=== PATIENT | male | born 1950 | race Caucasian/White ===

== ENCOUNTER 2019-06-18 07:30 | Day surgery (SDC) | payer OTHER, SELFPAY ==
[2019-06-18] VITALS (14 sets, daily range): BP systolic 109–138; BP diastolic 70–89; PULSE 60–69; RESP 15–18; TEMP 36.7; O2SAT 91–98; BMI 26.1
--- NOTE | 2019-06-18 07:40 | XACV_ITS ---
Ht: 178 cm Wt: 83 kg BSA: 2.03 m2 Gender: Male : 1950 Any Known Allergies: Other Exam Priority: Routine Procedure(s): Procedure Description: Diagnostic procedure Procedure Description: Left Heart Catheterization Procedure Description: Left ventriculography Procedure Description: Coronary Angiography Diagnostic Cath Status: Elective Diagnostic Findings LM has 0% stenosis. LAD has 0% stenosis. CX has 0% stenosis. pRCA: Moderate 50% stenosis, KENDELL: 3 flow. Coronary angiography shows right dominance. Conclusions There is mild coronary artery disease with one vessel disease. Normal left ventricular systolic function. Ejection fraction of 60%. Jeremy Randle is a 69 year old male past medical history significant for hypertension hyperlipidemia COPD history of tobacco abuse has been seeing me in my clinic for the past year. Initially patient saw me with abnormal stress test worsening of shortness of breath and occasional chest pressure. In the month of August 2018 and had stress test which showed abnormal transient ischemic dilatation and old inferior wall myocardial infarction on perfusion scan. Since echocardiogram showed normal ejection fraction we thought that we will manage him medically. We optimize his medicine and control his risk factors however patient kept on deteriorating now to the extent that whenever he walk every time he become short of breath easily and experience chest pressure. It is the reason we discussed regarding further exploration with coronary angiogram for risk stratification and further guidance of the therapy. Today patient is here for this purpose. He has been explained all risk benefit and alternative for the procedure. Recommendations Continue current medical management and risk factor modification. Diagnostic RX Recommendation: medical therapy and/or counseling Ventriculography Ejection Fraction: 60.0 % Left Ventriculography Findings: Normal left ventricular size and systolic function. Pressures Phase:Rest AO : 81 mmHg / 63 mmHg ( 70 mmHg ) @ 4:07:00 AM 100 mmHg / 58 mmHg ( 75 mmHg ) @ 4:22:00 AM 98 mmHg / 57 mmHg ( 72 mmHg ) @ 4:22:00 AM LV : 106 mmHg / 11 mmHg / @ 4:21:00 AM 97 mmHg / -6 mmHg / @ 4:22:00 AM 105 mmHg / -2 mmHg / @ 4:22:00 AM Valves Phase:DefaultPhase AV : 0.0 mmHg @ 9:34:07 AM 0.0 mmHg @ 9:34:07 AM AV Mean Gradient: 0.0 mmHg @ 9:34:07 AM 0.0 mmHg @ 9:34:07 AM Clinical Evaluation EBL: 5mL-10mL Procedural Details Procedure Consent Obtained. Pre-Procedure Time Out. Identified patient by full name and date of as verbalized by the patient/guarantor. Does the consent match the physician's order: Yes. Accurate & Complete Informed Consent: Yes. Inpatient/Outpatient History & Physical on Chart: Yes. If H&P is completed, is and addenduem needed: No; If yes, is the addendum complete: N/A. Visualize and Verify Site with Patient/Guarantor: N/A. Relevant Radiology Images available: N/A. Pre-op teaching completed and patient verbalized understanding. The risks, benefits, and alternatives of sedation and/or procedure were discussed by physician. The patient agrees to continue. Procedure started. [facility] Clinical Fraility Score: 4: Vulnerable. Banquet Chef Indications: New Onset Angina. Chest Pain Symptom Assessment: Typical Angina Symptoms. Cardiovascular Instability: No. Correct patient, site and procedure confirmed by cath team. PERRLA. Strong, equal hand color worker bilaterally. Lungs clear x 5 lobes. IV Site on Arrival: 20 gauge in the left anticubital. IV Fluids: 0.9% NaCl at KVO. 0 mL infused prior to geotechnical laboratory technician. Pre Procedural Pulses: bilateral dorsalis pedis was 2+. Pre Procedural Pulses: bilateral posterior tibial was 2+. Pre Procedural Pulses: bilateral radial was 3+. Oxygen started at 2liters/min via nasal canula. Physician arrived. Equipment: 6F - Radial. Cardiac Cath Pack. ACIST Manifold Kit Model BT 2000. Heparinized Saline (2 units/mL), 1000 mL bag. bilateral groins was prepped with chloroprep then draped in the usual sterile fashion. right radial was prepped with chloroprep then draped in the usual sterile fashion. Baseline sample Acquired. HR: 61 BPM. Physician scrubbed in. Immediate Pre-Procedure Time Out. Correct Patient: Yes; Correct Procedure: Yes; Correct Site: Yes; Correct Patient Position: Yes; Correct Supplies: Yes; Dried Flammable Prep: Yes; Blood Products Available: N/A;. Lidocaine 1% infiltrated to the right radial. Arterial access obtained. A 5 cymraes TIG catheter in over wire. Multiple views taken of left coronary artery. Catheter redirected to the RCA. Multiple views taken of right coronary artery. Catheter removed over the exchange wire. A 5 cymraes JL4 catheter in over wire. A 5 cymraes Angled Pig catheter in over wire. EDP Sample taken: LV 106/11,23; HR: 57 BPM; SpO2: 96%. LV gram performed in MUNSON @ 10 mL/second for a total of 30 mL. EDP Sample taken: LV 97/-7,6; HR: 57 BPM; SpO2: 97%. Pullback taken: LV 105/-3,13; AO 100/58(75); Mean: 0mmHg, Peak to Peak: 0mmHg, SEP: 0sec/min; HR: 57 BPM; SpO2: 96%. Physician scrubbed out. A TR Band was successful obtaining hemostatsis at the Right Radial artery insertion site. TR band placed. Hemostasis obtained. Post Procedure: Pulses reassessed and unchanged. PERRLA. Strong, equal hand color worker bilaterally. No VTE prophylaxis required. Medication's Wasted: Lidocaine 1% = 18 mL. Medication's Wasted: Nitro = 49.8 mg. Medication's Wasted: Heparin = 1000 units. Medication's Wasted: Other = versed 1 mg. Total IV fluids: 32 mL. Contrast type used: Omnipaque 300 mgI/mL, 500 mL bottle. Complications: none. Estimated blood loss: 5mL-10mL. Post-op diagnosis: non obstructive CAD. Procedure completed. Patient transferred by wheelchair to CPRU. Vital chart was stopped. Site: Right Radial artery Sheath Size: 6 Fr Hemostasis Method: TR Band Hemostasis Success: Successful Procedure Medications Start: 8:58 AM Stop: 8:58 AM Medication: Versed Amount: 1 mg Route: I.V. Start: 8:58 AM Stop: 8:58 AM Medication: Fentanyl Amount: 50 mcg Route: I.V. Start: 9:01 AM Stop: 9:01 AM Medication: Versed Amount: 1 mg Route: I.V. Start: 9:04 AM Stop: 9:04 AM Medication: Nitrogylcerin Amount: 200 mcg Route: I.A. Start: 9:05 AM Stop: 9:05 AM Medication: Versed Amount: 1 mg Route: I.V. Start: 9:05 AM Stop: 9:05 AM Medication: Fentanyl Amount: 50 mcg Route: I.V. Start: 9:11 AM Stop: 9:11 AM Medication: Heparin Amount: 5000 units Route: I.V. I, the attending physician, have reviewed and verified all procedure medications. Yes, all medications given per verbal order History/Risk Factors Hypertension: Yes Dyslipidemia: Yes Peripheral Arterial Disease (PAD): No Myocardial Infarction (HI): No Obesity: No Renal Disease: No Tobacco Use: Current/Recent(w/in 1 year) Prior Interventions PCI: No CABG: No Valve Surgery: No Report Signatures Finalized by:Kassy Benedict MD on 06/21/2019 9:14:57 PM
[2019-06-18 08:18] LABS: Basophils # 0.1 10^3/uL (0.0-0.1); Basophils % 1.3 %; Eosinophils # 0.5 10^3/uL (0.0-0.8); Eosinophils % 8.3 %; Hematocrit 41.5 % (42.0-52.0); Hemoglobin 14.4 g/dL (11.7-16.6); Lymphocytes # 1.5 10^3/uL (0.8-4.8); Lymphocytes % 23.9 %; Mean Corpuscular HGB Conc 34.7 g/dL (30.0-36.0); Mean Corpuscular Hemoglobin 31.7 pg (28.0-34.0); Mean Corpuscular Volume 91.4 fL (80-94); Mean Platelet Volume 9.4 fL (7.4-10.4); Monocytes # 0.5 10^3/uL (0.2-0.9); Monocytes % 8.2 %; Neutrophils # 3.6 10^3/uL (1.8-7.7); Neutrophils % 56.7 %; Nucleated Red Blood Cells % 0 %; Platelet Count 289 10^3/cmm (130-400); Red Blood Count 4.54 10^6/uL (4.1-5.3); Red Cell Distribution Width 12.6 % (12.1-15.1); White Blood Count 6.4 10^3/uL (4.0-10.0)
--- NOTE | 2019-06-18 08:19 | SUR.PREOP ---
Patient prepped/ready for cath at 0820. Previous procedure still going. Patient aware that prior case running late. Verbalized understanding.
[2019-06-18] MEDS: diphenhydrAMINE 50 mg Capsule PO (08:25)
[2019-06-18 08:31] LABS: Blood Urea Nitrogen 12 mg/dL (8-23); Calcium 9.4 mg/dL (8.5-10.5); Carbon Dioxide 28 mmol/L (22-29); Chloride 98 mmol/L (98-107); Glomerular Filtration Rate 95.8 mL/min (90-130); Glucose 112 mg/dL (65-115); Osmolality Calculated 281 mOsm/kg (285-295); Sodium 137 mmol/L (136-145)
--- NOTE | 2019-06-18 08:46 | PM.HP ---
Providers/Chief Complaint Primary Care Provider: Leo Banks Chief Complaint: SOB History of Present Illness Jeremy Randle is a 69 year old male past medical history significant for hypertension hyperlipidemia COPD history of tobacco abuse has been seeing me in my clinic for the past year. Initially patient saw me with abnormal stress test worsening of shortness of breath and occasional chest pressure. In the month of August 2018 and had stress test which showed abnormal transient ischemic dilatation and old inferior wall myocardial infarction on perfusion scan. Since echocardiogram showed normal ejection fraction we thought that we will manage him medically. We optimize his medicine and control his risk factors however patient kept on deteriorating now to the extent that whenever he walk every time he become short of breath easily and experience chest pressure. It is the reason we discussed regarding further exploration with coronary angiogram for risk stratification and further guidance of the therapy. Today patient is here for this purpose. He has been explained all risk benefit and alternative for the procedure. Review of Systems Const: Denies: fever or chills Eyes: Denies: change in vision Card: Reports: chest pain Resp: Reports: shortness of breath GI: Denies: abdominal pain, nausea or vomiting : Denies: flank pain Musc: Denies: neck pain or back pain Neuro: Denies: headache or numbness in extremities Psych: Denies: anxiety Medications/Allergies Allergies Allergy/AdvReac Type Severity Reaction Status Date / Time lisinopril Allergy Unknown ADR-Cough Verified 06/18/19 08:19 PFSH Acute PFSH: Medical History (Updated 06/18/19 @ 08:54 by Kassy Benedict MD) Chest pain COPD (chronic obstructive pulmonary disease) HTN (hypertension) Hyperlipidemia Shortness of breath Family History Other Cancer Social History Smoking and tobacco status: current every day smoker Vitals/I&O/Wt Weight last 48 hrs Weight 182 lb Physical Exam Narrative: EXAM NARRATIVE: GENERAL: Patient is alert, awake and oriented x3. NECK: No jugular vein distension. HEENT: No cyanosis. No icterus. No pallor. HEART: Regular S1 and S2. No murmur, rub or gallop. LUNGS: Clear to auscultate bilaterally. ABDOMEN: Soft, nontender and nondistended. Positive bowel sounds. No guarding, rebound or tenderness. CENTRAL NERVOUS SYSTEM: Grossly nonfocal. EXTREMITIES: Lower extremities without edema bilaterally. Data : 06/18/19 08:06 06/18/19 08:06 A&P Assessment and plan (1) Shortness of breath: Patient has worsening of shortness of breath which appears to be out of proportion of his COPD. He has abnormal stress test which initially did not show ischemia but suggestive of old myocardial infarction. On the stress test he has transient ischemic dilatation which sometimes can present as physician relations representative of multivessel coronary artery disease. Despite of medication his condition has worsened therefore we decided to proceed with left heart cath. Status: Acute Code(s): R06.02 - Shortness of breath (2) Chest pain: Patient complains of worsening of chest pressure upon mild to moderate exertion from last year. He is here today for left heart catheterization for risk stratification and further exploration to look at his anatomy as multivessel coronary artery disease is a possibility Status: Acute Qualifiers: Chest pain type: unspecified Qualified Code(s): R07.9 - Chest pain, unspecified Code(s): R07.9 - Chest pain, unspecified (3) HTN (hypertension): Well-controlled. Status: Acute Qualifiers: Hypertension type: essential hypertension Qualified Code(s): I10 - Essential (primary) hypertension Code(s): I10 - Essential (primary) hypertension Attestations Medical Necessity Statement*: I am not expecting his stay to cross more than 1 midnight. He will be outpatient in bed. Coding Level of Care Code New Pt Acute Shipping Order Clerk for [facility] Patient Type New History Expanded Problem Focused Exam Expanded Problem Focused Medical Decision Making Moderate Complexity Diagnoses Shortness of breath R06.02 Chest pain R07.9 Chest pain type: unspecified HTN (hypertension) I10 Hypertension type: essential hypertension
--- NOTE | 2019-06-18 09:30 | SUR.PHASEII ---
POST CATH NOTE Patient to CPRU room 4- status post cardiac cath via the right radial approach. TR Band to right radial access site- no hematoma or s/s of hematoma formation noted. Family at bedside. Call light given. Informed to call for needs. See pre/post cath flowsheet for details.
--- NOTE | 2019-06-18 11:31 | SUR.PHASEII ---
TR Band TR Band deflated using protocol. No hematoma formation noted at this time.
== END 2019-06-18 13:05 | disposition home or self-care (01) ==
PROVIDERS: Family Provider Family Medicine; PCP Family Medicine; Visit Provider Internal Medicine Cardiovascular Disease
DX: I25.10 Atherosclerotic heart disease of native coronary artery without angina pectoris (principal); I10 Essential (primary) hypertension; E78.5 Hyperlipidemia, unspecified; J44.9 Chronic obstructive pulmonary disease, unspecified; F17.210 Nicotine dependence, cigarettes, uncomplicated
CPT/HCPCS: 12345; 36415; 80048; 85025; 93452; C1769; C1887; C1894; J1644; J2001; J2250; J3010; J3490; J7030; Q0163; Q9967

== ENCOUNTER 2019-09-18 11:00 | Outpatient (CLI) | payer OTHER, SELFPAY | END 2019-09-18 11:01 | disposition home or self-care (01) | LOC: SLEEP 09-19 09:41 | PROVIDERS: Family Provider Family Medicine; PCP Family Medicine; Visit Provider Internal Medicine Critical Care Medicine | DX: J44.9 Chronic obstructive pulmonary disease, unspecified (principal) | CPT/HCPCS: 94762 ==

== ENCOUNTER 2019-09-30 08:16 | Outpatient (CLI) | payer OTHER, SELFPAY ==
--- NOTE | 2019-09-30 08:24 | CT_ITS ---
WS: [id number] CT LUNG CANCER SCREENING DLP: 87.85 mGy.cm DIvol: 2.28 mGy CLINICAL INFORMATION SCREENING VISIT: Baseline COMPARISON: 08/17/2018 FINDINGS Diagnostic quality: Satisfactory Comments: None. Lung Nodules: LEFT upper lobe spiculated part solid nodule with a mean diameter of 15 mm there is adj acent spiculation with pleural tethering and tagging. Nodule best seen on image 101 of series 3. Not present on the CT of 08/17/2018. No additional pulmonary lesions or endobronchial lesions. Benign gran uloma superior segment LEFT lower lobe. Lungs: Hyperinflated lungs from emphysema. Heart: Normal size heart with no effusion. Scattered coronary artery calcifications. Other findings: Large hiatal hernia. Mild atherosclerosis thoracic aorta. No adenopathy. Mild gynecomastia. No adrenal mass. CT/CT lung screening [id number] IMPRESSION: LUNG-RADS: 4B-Suspicious FOLLOW UP: PET/CT recommended. Additional chest CT with contrast.
[2019-09-30 09:11] VITALS: O2SAT 90; O2SAT 94
--- NOTE | 2019-09-30 13:19 | PFTS_ITS ---
Date of Study:09/30/19 Date of Dictation: MECHANICS: Forced vital capacity (FVC) is normal. Forced expiratory volume in one second (FEV1) is reduced. FEV1/FVC is reduced. FLOW VOLUME LOOP: Reduced flow at all lung volumes with significant scooping. LUNG VOLUMES: Total lung capacity (TLC) is normal. Residual volume (RV) is normal. DIFFUSING CAPACITY FOR CARBON MONOXIDE: Moderately reduced. INTERPRETATION: The pulmonary function tests are consistent with moderate obstruction. There is no evidence of air trapping or hyperinflation. Gas exchange (DLCO) is moderately reduced. MTDD
== END 2019-09-30 08:17 | disposition home or self-care (01) ==
LOC: RT 08:18
PROVIDERS: PCP Family Medicine; Visit Provider Internal Medicine Critical Care Medicine
DX: J44.9 Chronic obstructive pulmonary disease, unspecified (principal); Z12.2 Encounter for screening for malignant neoplasm of respiratory organs; F17.210 Nicotine dependence, cigarettes, uncomplicated
CPT/HCPCS: 94010; 94726; 94729; G0297

== ENCOUNTER 2020-04-13 07:53 | Outpatient (CLI) | payer OTHER, SELFPAY ==
--- NOTE | 2020-04-13 08:00 | CT_ITS ---
WS: [id number] CT CHEST TECHNIQUE: Noncontrast CT of the chest with coronal and sagittal reformatted images. CLINICAL INFORMATION: Cavitary lesion COMPARISON: PET/CT October 19, [address] lung screening September 30, 2019 DLP: 878.[address] scans at [facility] use at least one of these dose optimization techniques: automat ed exposure control; mA and/or kV adjustment per patient size (includes targeted exams where dose is matched to clinical indication); or iterative reconstruction. FINDINGS: Again seen is the spiculated cavitary left upper lobe pulmonary nodule today measuring 1.3 x 1.3 cm u nchanged from previous. No evidence of interval progression. Recommend continued surveillance with 3 month follow-up.New noncalcified 5 mm pulmonary nodule in the left upper lobe anteriorly not definite ly present on the prior examinations. No other suspicious pulmonary parenchymal opacities.Incidental benign posterior mediastinal pericardi al cyst measuring 5.8 x 5.0 cm is unchanged. Severe centrilobular emphysematous change. Large esophageal hiatal hernia. Coronary calcification. Aortic calcification. No mediastinal or hilar the lymphadenopathy. Mild thoracic kyphosis. Mild thoracic curve. CT/CT chest wo con [id number] IMPRESSION: 1. Severe chronic emphysematous changes. 2. Stable spiculated nodule left upper lobe measuring 1.3 x 1.3 cm. This is un changed since the prior 2 examinations. Recommend 3 month follow-up diagnostic chest CT. 3. New noncalcified 5 mm pulmonary nodule in the left upper lobe anteriorly no t definitely present on the prior examinations. Recommend 3 month follow-up. 4. Stable incidental posterior mediastinal pericardial cyst 5. No mediastinal or hilar lymphadenopathy. 6. No other significant changes from previous.
== END 2020-04-13 07:54 | disposition home or self-care (01) ==
LOC: RADWPI 07:56
PROVIDERS: PCP Family Medicine; Visit Provider Internal Medicine Critical Care Medicine
DX: J98.4 Other disorders of lung (principal); R91.1 Solitary pulmonary nodule; K44.9 Diaphragmatic hernia without obstruction or gangrene
CPT/HCPCS: 71250

== ENCOUNTER 2020-10-21 08:25 | Outpatient (CLI) | payer OTHER, SELFPAY ==
--- NOTE | 2020-10-21 08:45 | CT_ITS ---
WS: [id number] CT CHEST WITHOUT INTRAVENOUS CONTRAST HISTORY: Lung nodule TECHNIQUE: Contiguous 5 mm axial imaging performed on the thorax. Coronal and sagittal reformats are submitted. All CT scans at [facility] use at least one of these dose optimization techniq ues: automated exposure control; mA and/or kV adjustment per patient size (includes targeted exams wh ere dose is matched to clinical indication); or iterative reconstruction. CONTRAST: None DLP: 729.1 mGycm COMPARISON: 04/13/[address] 10/19/2019, head and neck CT 08/17/2018 Lungs and central airway: Solid mass with mild spiculation in the LEFT upper lobe measures 11 x 14 mm . Mass has not significantly increased in size since 04/13/2020 but there is been increase in the conso lidation. Central cystic areas are no longer present. This is a solid mass. Also, mass was not defini tely present on the prior CT of 08/17/2018. Paraseptal emphysema. Additional 5 mm nodule in the central LEFT upper lobe is unchanged. Subsegmenta l atelectasis at the medial RIGHT lung base. Pleura: Normal. No pleural effusion. Heart and pericardium: Normal size heart. Pericardial cyst posterior to the LEFT atrium measures 6.3 x 5.4 cm and has been previously described. Mediastinum and rubin: No mediastinum or hilar adenopathy. Vessels: Mild atherosclerosis aorta. Normal size pulmonary artery. Chest wall and lower neck: No soft tissue masses. Upper abdomen: Moderate-sized hiatal hernia. No adrenal mass. Suprarenal atherosclerosis within the a shelby. Osseous structures: Moderate diffuse spondylitic changes in the thoracic spine. CT/CT chest wo con [id number] IMPRESSION: 1. No increase in size of the spiculated nodule LEFT upper lobe measuring 11 x 14 mm. There has been a change in the consolidation. This nodule has become mo re consolidated as compared to 04/13/2020. Also, this nodule was not definitely p resent on CT of 08/17/2018. PET/CT performed on 10/19/2019 described this as like ly benign. Recommend interval surveillance to exclude low-grade neoplasm. 2. 5 mm LEFT upper lobe nodule is stable. 3. Chronic emphysema. 4. Stable large pericardial cyst.
== END 2020-10-21 08:26 | disposition home or self-care (01) ==
PROVIDERS: PCP Family Medicine; Visit Provider Internal Medicine Critical Care Medicine
DX: R91.1 Solitary pulmonary nodule (principal); Q24.8 Other specified congenital malformations of heart; J43.9 Emphysema, unspecified
CPT/HCPCS: 71250

== ENCOUNTER 2021-03-11 08:16 | Outpatient (CLI) | payer OTHER, SELFPAY ==
--- NOTE | 2021-03-11 10:30 | CT_ITS ---
WS: [id number] CT CHEST WITHOUT INTRAVENOUS CONTRAST HISTORY: Lung nodule TECHNIQUE: Contiguous 5 mm axial imaging performed on the thorax. Coronal and sagittal reformats are submitted. All CT scans at [facility] use at least one of these dose optimization techniques: automated exposure control; mA and/or kV adjustment per patient size (includes targeted exams where dose is matched to clinical indication); or iterative reconstruction. CONTRAST: None DLP: 883.89 mGycm COMPARISON: 10/21/2020, 04/13/2020, 09/30/[address] 10/19/2019. Lungs and central airway: Pulmonary hyperexpansion. Moderate changes of emphysema. Noncalcified oval nodule measuring 11 x 14 mm is again identified in the LEFT upper lobe. No increase in size since 09/09. No additional new nodule or pneumonia. Pleura: Normal. No pleural effusion. Heart and pericardium: Heart remains normal. There is a cystic mass which conforms to its surrounding structures in the posterior mediastinum. This mass is inseparable from the esophagus and causing mil d displacement of the distal esophagus. Fluid mass measures 6.5 x 5.1 cm and is stable. Heart size is normal. Mediastinum and rubin: No mediastinum or hilar adenopathy. Vessels: Mild atherosclerotic plaque within the aorta. Normal size pulmonary artery. Chest wall and lower neck: No soft tissue masses. Upper abdomen: Mild stable perinephric stranding around the upper poles of each kidney. No adrenal ma ss. Visualized liver is normal. Osseous structures: Increase in thoracic kyphosis. Moderate spondylitic changes in the thoracic spine . CT/CT chest wo con [id number] IMPRESSION: 1. Stable ovoid nodule LEFT upper lobe measures 11 x 14 mm. No increase in siz e since 09/30/2019. Recommend continued imaging follow-up for greater than 2 yea rs. 6-12 month follow-up chest CT recommended. 2. Moderate emphysema. 3. Stable cystic mass in the posterior mediastinum may be a pericardial cyst.
== END 2021-03-11 08:17 | disposition home or self-care (01) ==
PROVIDERS: PCP Family Medicine; Visit Provider Internal Medicine Critical Care Medicine
DX: R91.1 Solitary pulmonary nodule (principal); J43.9 Emphysema, unspecified
CPT/HCPCS: 71250

== ENCOUNTER → 2021-08-16 10:54 | Outpatient (BNVA) | payer OTHER, SELFPAY | PROVIDERS: PCP Family Medicine; Visit Provider Internal Medicine Critical Care Medicine | DX: J44.9 Chronic obstructive pulmonary disease, unspecified (principal); R91.1 Solitary pulmonary nodule; F17.210 Nicotine dependence, cigarettes, uncomplicated; I10 Essential (primary) hypertension; E78.5 Hyperlipidemia, unspecified | CPT/HCPCS: 99214 ==

== ENCOUNTER 2021-09-21 11:58 | Outpatient (CLI) | payer OTHER, SELFPAY ==
--- NOTE | 2021-09-21 12:07 | CT_ITS ---
WS: [id number] CT CHEST WITHOUT INTRAVENOUS CONTRAST HISTORY: f/u lung nodule TECHNIQUE: Contiguous 5 mm axial imaging performed on the thorax. Coronal and sagittal reformats are submitted. All CT scans at [facility] use at least one of these dose optimization techniques: automated exposure control; mA and/or kV adjustment per patient size (includes targeted exams where dose is matched to clinical indication); or iterative reconstruction. CONTRAST: None DLP: 794.08 mGy.cm COMPARISON: 09/30/2019, 03/11/2021 and PET/CT 10/19/2019 Lungs and central airway: Moderate pulmonary hyperinflation from emphysema. Long-term stability, sinc e 09/30/2019 but slightly irregular ovoid nodule measuring 12 x 9 mm in the LEFT upper lobe. This was noted to be negative on a PET/CT imaging. No new or additional nodules are identified. Pleura: Normal. No pleural effusion. Heart and pericardium: Normal size heart with no pericardial effusion. Mediastinum and rubin: There is a large cystic mass conforming to the space in the posterior mediastin um abutting the posterior heart measuring 5.3 x 6.9 cm. Probably representing pericardial cyst which is unchanged over prior studies. There is mild mass effect upon the esophagus and displacement of the esophagus to the LEFT. Vessels: Mild atherosclerosis aorta with no aneurysm. Normal size pulmonary artery. Chest wall and lower neck: No soft tissue masses. Upper abdomen: Very mild perinephric stranding around the upper pole of each kidney. No adrenal mass. Small hiatal hernia. No metastatic lesions within the liver. No adrenal mass. The visualized liver a nd gallbladder pancreas are negative. Osseous structures: Mild degenerative thoracic scoliosis with degenerative disc space narrowing and o steophytosis. CT/CT chest wo con [id number] IMPRESSION: 1. Stable LEFT upper lobe nodule since 09/30/2019 measures 12 x 9 mm. 2. Chronic emphysema. 3. Long-term stability large pericardial cyst.
== END 2021-09-21 11:59 | disposition home or self-care (01) ==
LOC: RAD 12:01
PROVIDERS: PCP Family Medicine; Visit Provider Internal Medicine Critical Care Medicine
DX: R91.1 Solitary pulmonary nodule (principal); J43.9 Emphysema, unspecified
CPT/HCPCS: 71250

== ENCOUNTER → 2021-10-21 13:37 | Outpatient (BNVA) | payer OTHER, SELFPAY | PROVIDERS: PCP Family Medicine; Visit Provider Internal Medicine Cardiovascular Disease | DX: I25.10 Atherosclerotic heart disease of native coronary artery without angina pectoris (principal); J44.9 Chronic obstructive pulmonary disease, unspecified; I10 Essential (primary) hypertension; E78.49 Other hyperlipidemia; F17.210 Nicotine dependence, cigarettes, uncomplicated | CPT/HCPCS: 93005; 99214 ==

== ENCOUNTER → 2022-02-16 08:37 | Outpatient (BNVA) | payer OTHER, SELFPAY | PROVIDERS: PCP Family Medicine; Visit Provider Internal Medicine Pulmonary Disease | DX: J44.9 Chronic obstructive pulmonary disease, unspecified (principal); R91.1 Solitary pulmonary nodule; F17.210 Nicotine dependence, cigarettes, uncomplicated | CPT/HCPCS: 99214 ==

== ENCOUNTER → 2022-10-13 13:40 | Outpatient (BNVA) | payer OTHER, SELFPAY | PROVIDERS: PCP Family Medicine; Visit Provider Internal Medicine Cardiovascular Disease | DX: I25.10 Atherosclerotic heart disease of native coronary artery without angina pectoris (principal); I10 Essential (primary) hypertension; E78.49 Other hyperlipidemia; J44.9 Chronic obstructive pulmonary disease, unspecified; F17.210 Nicotine dependence, cigarettes, uncomplicated | CPT/HCPCS: 99214 ==

== ENCOUNTER → 2022-10-19 09:54 | Outpatient (BNVA) | payer OTHER, SELFPAY | PROVIDERS: PCP Family Medicine; Visit Provider Internal Medicine Pulmonary Disease | DX: J44.9 Chronic obstructive pulmonary disease, unspecified (principal); R91.1 Solitary pulmonary nodule; F17.210 Nicotine dependence, cigarettes, uncomplicated | CPT/HCPCS: 99214 ==

== ENCOUNTER 2023-04-12 10:36 | Inpatient (IN) | payer OTHER, SELFPAY ==
[2023-04-12] VITALS (9 sets, daily range): BP systolic 94–126; BP diastolic 58–86; PULSE 67–86; RESP 15–22; TEMP 36.4–37; O2SAT 92–97; BMI 25.9
--- NOTE | 2023-04-12 10:39 | ECG_ITS ---
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 Measurements Intervals [place] Rate: 65 P: 17 OR: 145 QRS: 9 QRSD: 110 T: 87 QT: 392 QTc: 408 Interpretive Statements SINUS RHYTHM MODERATE T-WAVE ABNORMALITY, CONSIDER INFERIOR ISCHEMIA [-0.1+ mV T-WAVE IN II/aVF] Compared to ECG 08/17/2018 18:03:37 Possible ischemia now present T-wave abnormality still present Electronically Signed On 04-12-2023 12:52:22 MILK TREATER by Yobani Michel M.D. [email or web address] [id number]
[2023-04-12 10:53] LABS: Basophils # 0.1 10^3/uL (0.0-0.1); Basophils % 0.6 %; Eosinophils # 0.2 10^3/uL (0.0-0.8); Eosinophils % 1.7 %; Hematocrit 42.7 % (37-53); Lymphocytes # 1.4 10^3/uL (0.8-4.8); Lymphocytes % 16.2 %; Mean Corpuscular HGB Conc 36.8 g/dL (30-55); Mean Corpuscular Volume 87.1 fl (82-101); Mean Platelet Volume 9.5 fL (7.4-10.4); Monocytes # 0.9 10^3/uL (0.2-0.9); Monocytes % 10.4 %; Neutrophils # 6.17 10^3/uL (1.8-7.7); Neutrophils % 70.5 %; Nucleated Red Blood Cells % 0 %; Platelet Count 242 10^3/cmm (157-399); Red Cell Distribution Width 12.6 % (12.1-15.1); White Blood Count 8.75 10^3/uL (3.29-11.43)
--- NOTE | 2023-04-12 11:04 | XR_ITS ---
WS: [id number] Portable AP upright chest, 04/12/2023 Clinical Data: dyspnea/cough Comparison: Portable chest, 08/17/2018. Findings: No nodules, masses or effusions are seen. The heart is normal. The pulmonary vascularity is not increased. No pneumonia or pneumothorax is seen. The aortic arch and descending thoracic aorta s how tortuosity. The diaphragms are flattened. Impression: Atherosclerosis and hyperinflation.
[2023-04-12] MEDS: sodium chloride 0.9% 1,000 ML 999 ML IV (11:13)
[2023-04-12] MEDS: ondansetron 2 mg/ML SDV 2 mL 4 MG IVP (11:15)
--- NOTE | 2023-04-12 11:29 | ED_ITS ---
HPI - SOB/Dyspnea 2 General: Chief Complaint: Shortness of Breath/Dyspnea Stated Complaint: upper epigastic pain Time Seen by Provider: 04/12/23 10:38 Source: patient History of Present Illness: HPI Narrative: 73-year-old male with a history of hyper tension and COPD presents emergency room with complaints of progressively worsening shortness of breath and chest pain relieved by nitro and has become more more intense over the last few days. Initially when it began it was brought on by activity relieved by rest now he is having chest pain while at rest. He has associated nausea and shortness of breath with it. Does radiate to the neck and left shoulder. Woke him up from sleep he took 3 nitro to relieve the pain and route this morning. Patient had previous angiogram in 2021 which showed a RCA lesion no intervention was necessary at that time. Chest pain is relieved at this time. MD elicited complaint: shortness of breath Pertinent past history: COPD and other (Coronary artery disease) Onset (ago): day(s) Timing: progressively worsening Severity: moderate Exacerbating factors: exertion Relieving factors: medication (Nitroglycerin) Associated symptoms: Reports chest pain and cough; Deny abdominal pain, chest congestion, diaphoresis, dizziness, extremity pain, fever(s), hemoptysis, lightheadedness, myalgias, nausea, orthopnea, palpitations, paresthesias, polydipsia, polyuria, rash, sense of impending doom, syncope or vomiting Review of Systems 2 Const: Denies: fever(s), chills or diaphoresis Card: Reports: chest pain; Denies: palpitations, lightheadedness, syncope or orthopnea Resp: Reports: dyspnea and wheezing; Denies: hemoptysis or chest congestion GI: Denies: abdominal pain, nausea or vomiting : Denies: dysuria, urinary frequency or urinary urgency Musc: Denies: neck pain, back pain or extremity pain Skin/Breast: Denies: rash Neuro: Denies: dizziness Endo: Denies: polyuria or polydipsia PFSH ED 2 PFSH: Medical History (Updated 04/23/23 @ 07:16 by Syed Montano DO) Osteoarthritis Shortness of breath Chest pain HTN (hypertension) COPD (chronic obstructive pulmonary disease) Hyperlipidemia Surgical History H/O thumb surgery S/P cataract surgery Family History Mother Stroke Cancer Dementia Grandfather Cancer Grandmother Cancer Father Lung disease Denies family history of Diabetes CAD (coronary artery disease) Clotting disorder Chronic kidney disease (CKD) Suicide Anesthesia complication Bleeding disorder Social History Smoking and tobacco/nicotine status: current every day tobacco/nicotine user (0.5 ppd) cigarettes Packs smoked per day: 2.5 Years cigarettes smoked: 53 [ Other cigarette details: Started at age 17 years] Quit status (tobacco/nicotine): considering quitting Alcohol intake: current Alcohol intake frequency: 0-2 Drinks per Day Alcohol type: beer Substance/Drug Use: never Lives independently: Yes Household members: spouse Marital status: service: Yes Current occupational status: retired Do you think of yourself as: Straight/Heterosexual Current gender identity: Male Physical Exam 2 Const: GENERAL APPEARANCE: cooperative and comfortable O RIENTATION/CONSCIOUSNESS: Yes awake, Yes oriented to person, Yes oriented to place and Yes oriented to time HENMT: COMMON NORMALS: normocephalic, atraumatic and hearing grossly normal bilaterally HEAD & SCALP: normocephalic and atraumatic Resp: COMMON NORMALS: normal respiratory effort, No retractions and No use of accessory muscles AUSCULTATION: wheezes Cardio: COMMON NORMALS: regular rate, regular rhythm and No murmurs present (Cardio) RATE: regular rate RHYTHM: regular rhythm GI: COMMON NORMALS: Soft to palpation and No hepatosplenomegaly present A USCULTATION: Yes normoactive bowel sounds PALPATION: Yes Soft to palpation, No Tenderness to palpation present (GI), No Guarding due to palpation present (GI) and Yes No hepatosplenomegaly present Extremity: COMMON NORMALS: normal to inspection, capillary refill normal, no clubbing, cyanosis or edema, no calf tenderness and no pedal edema Neuro: SENSORIUM/ORIENTATION: Yes oriented to person, Yes oriented to place and Yes oriented to time Skin: COMMON NORMALS: no rashes or lesions noted GENERAL SKIN EXAM: no rashes or lesions noted Course 2 Vital Signs: Vital signs: Vital Signs Temperature 98.0 F 04/14/23 08:00 Pulse Rate 82 04/14/23 15:11 Respiratory Rate 18 04/14/23 15:03 Blood Pressure 122/75 04/14/23 14:18 Pulse Oximetry 93 04/14/23 15:03 Oxygen Delivery Me thod Nasal Cannula 04/14/23 15:03 Oxygen Flow Rate 2 04/14/23 15:03 MDM - SOB/Dyspnea Medical Decision Making Progressive angina now to the point of having unstable angina onset while at rest and relieved with nitroglycerin. Patient has known coronary disease. Discussed Dr. Carter recommends admission for further evaluation. Medical Records I reviewed the patient's medical records. Lab Data I reviewed the patient's lab results. 04/14/23 03:56 04/14/23 03:56 Labs/Radiology: Laboratory Results WBC 8.75 10^3/uL (3.29-11.43) 04/12/23 10:46 RBC 4.90 10^6/uL (3.85-5.65) 04/12/23 10:46 Hgb 15.70 g/dL (11.27-16.99) 04/12/23 10:46 Hct 42.7 % (37-53) 04/12/23 10:46 MCV 87.1 fl (82-101) 04/12/23 10:46 MCH 32.0 pg (27-33) 04/12/23 10:46 MCHC 36.8 g/dL (30-55) 04/12/23 10:46 RDW 12.6 % (12.1-15.1) 04/12/23 10:46 Plt Count 242 10^3/cmm (157-399) 04/12/23 10:46 MPV 9.5 fL (7.4-10.4) 04/12/23 10:46 Neut % (Auto) 70.5 % 04/12/23 10:46 Lymph % (Auto) 16.2 % 04/12/23 10:46 [place] % (Auto) 10.4 % 04/12/23 10:46 Eos % (Auto) 1.7 % 04/12/23 10:46 Baso % (Auto) 0.6 % 04/12/23 10:46 Neut # (Auto) 6.17 10^3/uL (1.8-7.7) 04/12/23 10:46 Lymph # (Auto) 1.4 10^3/uL (0.8-4.8) 04/12/23 10:46 [place] # (Auto) 0.9 10^3/uL (0.2-0.9) 04/12/23 10:46 Eos # (Auto) 0.2 10^3/uL (0.0-0.8) 04/12/23 10:46 Baso # (Auto) 0.1 10^3/uL (0.0-0.1) 04/12/23 10:46 Nucleated RBC % (auto) 0 % 04/12/23 10:46 Nucleated RBCs # 0.0 /100WBC 04/12/23 10:46 Sodium 130 mmol/L (136-145) L 04/12/23 10:46 Potassium 3.5 mmol/L (3.5-5.1) 04/12/23 10:46 Chloride 90 mmol/L (98-107) L 04/12/23 10:46 Carbon Dioxide 24 mmol/L (22-29) 04/12/23 10:46 Anion Gap 19.5 (5-19) H 04/12/23 10:46 BUN 18 mg/dL (8-23) 04/12/23 10:46 Creatinine 1.2 mg/dL (0.7-1.2) 04/12/23 10:46 GFR Calculation Not Reportable 04/12/23 10:46 Glucose 135 mg/dL (65-115) H 04/12/23 10:46 Estimat Average Glucose 114 04/12/23 10:46 Hemoglobin A1c 5.6 % (4.0-6.0) 04/12/23 10:46 Calculated Osmolality 274 mOsm/kg (285-295) L 04/12/23 10:46 Calcium 8.9 mg/dL (8.5-10.5) 04/12/23 10:46 Total Bilirubin 0.6 mg/dL (0.15-1.2) 04/12/23 10:46 AST 19 U/L (0-40) 04/12/23 10:46 ALT 10 U/L (0-41) 04/12/23 10:46 Alkaline Phosphatase 82 U/L (40-130) 04/12/23 10:46 Troponin T Baseline 14 ng/L (0-15) 04/12/23 10:46 Troponin T 120 Minute 11.70 ng/L (0-15) 04/12/23 12:13 Delta Troponin T -2.30 ABS# (0-10) L 04/12/23 12:13 NT-Pro-B Natriuret Pep 193 pg/mL (0-125) H 04/12/23 10:46 Total Protein 6.6 g/dL (6.6-8.7) 04/12/23 10:46 Albumin 4.0 g/dL (3.5-5.2) 04/12/23 10:46 Globulin 2.6 g/dL (1.3-4.6) 04/12/23 10:46 Lipase 14 U/L (13-60) 04/12/23 10:46 TSH 1.31 uIU/mL (0.27-4.20) 04/12/23 10:46 All radiology interpretation(s) finalized by discharge Discharge Plan Discharge Patient Disposition: Admitted As Inpatient Admit Provider: Ines Kim Clinical Impression: 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
[2023-04-12 11:38] LABS: Alanine Aminotransferase 10 U/L (0-41); Alkaline Phosphatase 82 U/L (40-130); Anion Gap 19.5 (5-19); Aspartate Amino Transferase 19 U/L (0-40); Blood Urea Nitrogen 18 mg/dL (8-23); Calcium 8.9 mg/dL (8.5-10.5); Carbon Dioxide 24 mmol/L (22-29); Chloride 90 mmol/L (98-107); Globulin 2.6 g/dL (1.3-4.6); Glucose 135 mg/dL (65-115); Lipase 14 U/L (13-60); Osmolality Calculated 274 mOsm/kg (285-295); Potassium 3.5 mmol/L (3.5-5.1); Sodium 130 mmol/L (136-145); Total Bilirubin 0.6 mg/dL (0.15-1.2); Total Protein 6.6 g/dL (6.6-8.7)
[2023-04-12 11:39] LABS: Troponin(5th) Baseline 14 ng/L (0-15)
--- NOTE | 2023-04-12 12:39 | ECG_ITS ---
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 Measurements Intervals [place] Rate: 70 P: -56 VA: 155 QRS: -3 QRSD: 101 T: 91 QT: 360 QTc: 389 Interpretive Statements SINUS RHYTHM NONSPECIFIC ST & T-WAVE ABNORMALITY Compared to ECG 04/12/2023 11:00:24 Possible ischemia no longer present T-wave abnormality still present Electronically Signed On 04-12-2023 12:52:43 RADIAL DRILL OPERATOR FOR PLASTIC by Yobani Michel M.D. [id number]
--- NOTE | 2023-04-12 15:03 | P.HP_ITS ---
Providers/Chief Complaint 2 Primary Care Provider: Denise Orantes MD Chief Complaint: upper epigastic pain History of Present Illness Jeremy Randle is a 73 year old male With past medical history of hypertension, COPD, hyperlipidemia, shortness of breath presented to the hospital today with complaint of chest pain. He states that the pain has been worsening and worsening over the last couple of days. He has been using nitro. He says when he gets the chest pain he breaks into a sweat. And last night when he had the pain he became very dizzy and lightheaded along with it. He typically takes nitro for it. He says he took 3 nitros and it finally subsided. He has been watching it but did not come to the hospital however it was now unbearable and therefore he presented. He follows with Dr. Carter for cardiology and Dr. Enciso for his COPD. He says he has an appointment coming up with Dr. Carter and he was planning to tell him that the chest pain is getting worse and worse and something needs to be done about it. Patient has had an angiogram done back in 2021 and he was found to have a 50% RCA lesion KENDELL flow 3, at that time no interventional targets. He says at first the chest pain was happening upon exertion however now it starting to happen with minimal exertion as well. Simply him getting up out of bed causes the pain and him breaking into a sweat. Pain is mostly middle of the chest and sometimes epigastric.. Also has nausea and sometimes. Denies any other symptoms. Medications/Allergies Home Medications Medication Instructions Recorded Confirmed Last Taken Type chlorpheniramine maleate 4 mg 4 mg PO Q4H PRN Allergy Symptoms 05/01/19 04/12/23 06/18/19 05:30 History tablet ibuprofen 800 mg tablet 800 mg PO TID 05/01/19 04/12/23 04/11/23 History isosorbide mononitrate 30 mg 15 mg PO BID 05/01/19 04/12/23 04/11/23 History tablet,extended release 24 hr nitroglycerin 0.4 mg sublingual 0.4 mg sublingual DIRECTED PRN 05/01/19 04/12/23 04/12/23 History tablet (Nitrostat) Chest Pain omeprazole 20 mg capsule,delayed 20 mg PO QDAY 05/01/19 04/12/23 04/11/23 History release hydrochlorothiazide 25 mg tablet 25 mg PO QAM #90 tabs 11/01/19 04/12/23 04/11/23 Rx albuterol sulfate 90 mcg/actuation 2 puff inhalation Q6H PRN 01/14/20 04/12/23 Unknown Rx aerosol inhaler (ProAir HFA) shortness of breath or wheezing #18 grams guaifenesin 200 mg tablet 400 mg PO Q4H PRN Cough 07/24/20 04/12/23 Unknown History tramadol 50 mg tablet 50 mg PO TID PRN Pain 07/24/20 04/12/23 Unknown History tiotropium 2.5 mcg-olodaterol 2.5 2 puff inhalation Q24H 30 days #4 02/15/21 04/12/23 04/11/23 Rx mcg/actuation mist for inhalation grams (Stiolto Respimat) fluticasone propionate 50 2 spray intranasal QPM 02/16/22 04/12/23 04/11/23 History mcg/actuation nasal spray,suspension (Children's Flonase Allergy Relief) amlodipine 5 mg tablet 2.5 mg PO DAILY 04/12/23 04/12/23 04/11/23 History atenolol 50 mg tablet 25 mg PO BID 04/12/23 04/12/23 04/11/23 History losartan 100 mg tablet See Rx Instructions .Route .COMPLEX 04/12/23 04/12/23 04/11/23 History Allergies Allergy/AdvReac Type Severity Reaction Status Date / Time lisinopril Allergy Unknown ADR-Cough Verified 04/12/23 11:10 PFSH Acute 2 PFSH: Medical History Osteoarthritis Shortness of breath Chest pain HTN (hypertension) COPD (chronic obstructive pulmonary disease) Hyperlipidemia Surgical History H/O thumb surgery S/P cataract surgery Family History Mother Stroke Cancer Dementia Grandfather Cancer Grandmother Cancer Father Lung disease Denies family history of Diabetes CAD (coronary artery disease) Clotting disorder Chronic kidney disease (CKD) Suicide Anesthesia complication Bleeding disorder Social History Smoking and tobacco/nicotine status: current every day tobacco/nicotine user (0.5 ppd) cigarettes Packs smoked per day: 2.5 Years cigarettes smoked: 53 [ Other cigarette details: Started at age 17 years] Quit status (tobacco/nicotine): considering quitting Alcohol intake: current Alcohol intake frequency: 0-2 Drinks per Day Alcohol type: beer Substance/Drug Use: never Lives independently: Yes Household members: spouse Marital status: service: Yes Current occupational status: retired Do you think of yourself as: Straight/Heterosexual Current gender identity: Male Vitals/I&O/Wt Last Vital Signs Temp 97.6 F 04/12/23 10:40 Pulse 67 04/12/23 10:40 Resp 18 04/12/23 10:40 BP 94/58 04/12/23 10:40 Pulse Ox 93 04/12/23 10:40 O2 Del Method Room Air 04/12/23 10:40 Weight last 48 hrs Weight 84.368 kg Physical Exam 2 Narrative: General: Alert oriented x3, patient seen sitting up in bed, chest pain-free. HEENT: Normocephalic, atraumatic, EOMI, breathing comfortably on room air. Cardio: Regular rate rhythm, normal S1-S2, Respiratory: Good bilateral air entry, no wheezes no rhonchi appreciated GI: Abdomen soft, nontender, nondistended, bowel sounds + Behavior: Appropriate and cooperative Extremities: No edema noted. Data 04/12/23 10:46 04/12/23 10:46 A&P Assessment and plan (1) HTN (hypertension): Qualifiers: Hypertension type: essential hypertension Qualified Code(s): I10 - Essential (primary) hypertension (2) Chest pain: Qualifiers: Chest pain type: unspecified Qualified Code(s): R07.9 - Chest pain, unspecified (3) Atherosclerosis of coronary artery of [place] heart without angina pectoris: (4) Hyperlipidemia: Qualifiers: Hyperlipidemia type: other hyperlipidemia Qualified Code(s): E78.49 - Other hyperlipidemia (5) COPD (chronic obstructive pulmonary disease): (6) Shortness of breath: (7) Nicotine addiction: Plan #Unstable angina #Coronary artery disease 50% RCA lesion #Hypertension #COPD ? Start on ACS protocol to treat for unstable angina. Aspirin, loaded with Plavix, Plavix daily, continue atenolol. Start therapeutic Lovenox every 12 hours ? Continue Imdur, Nitropaste ? Consult cardiology. ? Check hemoglobin A1c, lipid panel, TSH ? Check BMP ? Follow troponin trend. Initial troponin done, 2016 hrs. pending at this time ? Serial EKGs -Check echo for wall motion abnormalities - Continue to monitor on telemetry. - Admit to cardiac step down - Duoneb q6h as needed DNR/DNI he states if he goes let him go. I do not want any interventions. Attestations 2 Medical Necessity Statement*: > 2midnight stay for mgmt of Unstable angina Diagnoses Essential hypertension I10 Hypertension type: essential hypertension Chest pain, unspecified type R07.9 Chest pain type: unspecified Atherosclerosis of coronary artery of [place] heart without angina pectoris I25.10 Other hyperlipidemia E78.49 Hyperlipidemia type: other hyperlipidemia COPD (chronic obstructive pulmonary disease) J44.9 Shortness of breath R06.02 Nicotine addiction F17.200
--- NOTE | 2023-04-12 15:16 | USCV_ITS ---
Jeremy Randle Age: 73 Gender: M : 1950 Exam Date: 04/12/2023 19:07 Ordering Phys: Ines Kim MD Technologist: MCKENNA Exam Location: [facility] [place] Indication: Unstable Angina, SOB, dyspnea, chronic COPD, long- term smoker, continues smoking. BP: 126 / 81 HR: 80 Rhythm: Sinus Technical Quality: Adequate MEASUREMENTS (Male / Female) Normal Values 2D ECHO LV Diastolic Diameter PLAX 4.0 cm 4.2 - 5.9 / 3.9 - 5.3 cm LV Systolic Diameter PLAX 2.5 cm IVS Diastolic Thickness 1.4 cm 0.6 - 1.0 / 0.6 - 0.9 cm IVS Systolic Thickness 1.6 cm LVPW Diastolic Thickness 1.2 cm 0.6 - 1.0 / 0.6 - 0.9 cm LVPW Systolic Thickness 1.6 cm LVOT Diameter 1.8 cm LV Ejection Fraction 2D Teich 70.0 % LV Ejection Fraction MOD 2C 63.7 % LV Ejection Fraction 2C AL 65.0 % LA Diameter 2.8 cm LA Width 2.3 cm LA Height 3.9 cm RA Width 3.0 cm RA Height 3.5 cm Aorta at Sinotubular Diameter 3.1 cm IVC Diameter 1.1 cm M-MODE Aortic Annulus Diameter 3.9 cm LA Ao Ratio MM 0.8 MV E Point Septal Separation 0.5 cm DOPPLER AV Peak Velocity 109.0 cm/s LVOT Peak Velocity 76.0 cm/s AV Area Cont Eq vti 1.9 cm squared AV Area Cont Eq pk 1.8 cm squared MV Peak Velocity 105.0 cm/s MV Area PHT 3.6 cm squared Mitral E to A Ratio 0.7 MV E' Velocity 30.0 cm/s Mitral E to MV E' Ratio 7.0 Mitral E to LV E' Lateral Ratio 6.2 Mitral E to LV E' Septal Ratio 8.0 TR Peak Velocity 249.0 cm/s TR Peak Gradient 24.8 mmHg TV Peak E Velocity 49.0 cm/s Right Atrial Pressure 5.0 mmHg Pulmonary Artery Systolic Pressu 29.8 mmHg PV Peak Velocity 121.0 cm/s RV Acceleration Time 0.1 s RV Ejection Time 0.4 s RV AcT/ET 0.2 FINDINGS Left Ventricle Normal left ventricular size and systolic function, EF 59 %. No regional wall motion abnormalities. Technically difficult study because of poor ultrasonic window Right Ventricle Normal right ventricular size and systolic function. Right Atrium The right atrium is normal in size. Left Atrium Normal left atrial size. Mitral Valve Mild mitral annular calcification. Aortic Valve Thickened aortic valve. Tricuspid Valve No gross abnormality noted Pulmonic Valve no gross abnormality noted Pericardium No pericardial effusion. Aorta Normal ascending aorta dimension. IVC Possible large left-sided pleural effusion CONCLUSIONS Normal left ventricular size and systolic function, EF 59 %. No regional wall motion abnormalities. Mild mitral annular calcification. Thickened aortic valve. There is no pericardial effusion. Possible large left-sided pleural effusion Technically difficult study because of poor ultrasonic window Dr Steffi Carter MD FACC (Electronically Signed) Final Date: 12 April 2023 23:57 S
[2023-04-12 15:49] LABS: Estmated Average Glucose 114; Hemoglobin A1C 5.6 % (4.0-6.0)
[2023-04-12 15:55] LABS: NT Pro B Type Natriuretic Pept 193 pg/mL (0-125); Thyroid Stimulating Hormone 1.31 uIU/mL (0.27-4.20)
--- NOTE | 2023-04-12 15:56 | PC.NURSE ---
DOMINIK ELMORE TOOK OVER CARE @ [id number]
--- NOTE | 2023-04-12 16:39 | ECG_ITS ---
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 Measurements Intervals [place] Rate: 73 P: -40 [place]: 149 QRS: 23 QRSD: 102 T: 78 QT: 379 QTc: 420 Interpretive Statements SINUS RHYTHM MINIMAL ST DEPRESSION [0.025+ mV ST DEPRESSION] Compared to ECG 04/12/2023 12:19:56 ST (T wave) deviation now present T-wave abnormality no longer present Electronically Signed On 04-12-2023 19:02:10 ASSOCIATE PROFESSOR OF LITERATURE by Yobani Michel M.D. [id number]
[2023-04-12] MEDS: clopidogrel 300 mg Tablet PO (17:02)
[2023-04-12] MEDS: aspirin 81 mg EC Tablet PO (17:02)
[2023-04-12] MEDS: enoxaparin 80 mg/0.8 mL Syringe SUBCUT (17:02)
[2023-04-12] MEDS: sodium chloride 0.9% 1,000 ML 75 ML IV (17:07)
--- NOTE | 2023-04-12 18:10 | P.CONIM_ITS ---
Providers/Reason For Consult 2 Consulting Physician/Specialty*: Yobani Michel MD/ Cardiology Reason for Consult*: Chest pain Requesting Physician: Dr Kim Attending Physician: Ines Kim MD Primary Care Provider: Denise Orantes MD History of Present Illness History of Present Illness Jeremy Randle is a 73 year old male with past medical history of significant COPD, nonobstructive CAD has presented to hospital with complaints of chest discomfort and shortness of breath. According to patient he has been noticing chest discomfort more often recently. Has used multiple nitros. His EKG does not show significant ST-T wave changes. Troponins are negative. Last coronary angiogram was about 2 to 3 years ago and had to moderate 50% stenosis in RCA. Review of Systems 2 Const: Denies: fever(s) or chills Card: Reports: chest pain Resp: Reports: dyspnea and wheezing GI: Denies: abdominal pain : Denies: dysuria, urinary frequency or urinary urgency Musc: Denies: neck pain or back pain Skin/Breast: Denies: rash Medications/Allergies Home Medications Medication Instructions Recorded Confirmed Last Taken Type chlorpheniramine maleate 4 mg 4 mg PO Q4H PRN Allergy Symptoms 05/01/19 04/12/23 06/18/19 05:30 History tablet ibuprofen 800 mg tablet 800 mg PO TID 05/01/19 04/12/23 04/11/23 History isosorbide mononitrate 30 mg 15 mg PO BID 05/01/19 04/12/23 04/11/23 History tablet,extended release 24 hr nitroglycerin 0.4 mg sublingual 0.4 mg sublingual DIRECTED PRN 05/01/19 04/12/23 04/12/23 History tablet (Nitrostat) Chest Pain omeprazole 20 mg capsule,delayed 20 mg PO QDAY 05/01/19 04/12/23 04/11/23 History release hydrochlorothiazide 25 mg tablet 25 mg PO QAM #90 tabs 11/01/19 04/12/23 04/11/23 Rx albuterol sulfate 90 mcg/actuation 2 puff inhalation Q6H PRN 01/14/20 04/12/23 Unknown Rx aerosol inhaler (ProAir HFA) shortness of breath or wheezing #18 grams guaifenesin 200 mg tablet 400 mg PO Q4H PRN Cough 07/24/20 04/12/23 Unknown History tramadol 50 mg tablet 50 mg PO TID PRN Pain 07/24/20 04/12/23 Unknown History tiotropium 2.5 mcg-olodaterol 2.5 2 puff inhalation Q24H 30 days #4 02/15/21 04/12/23 04/11/23 Rx mcg/actuation mist for inhalation grams (Stiolto Respimat) fluticasone propionate 50 2 spray intranasal QPM 02/16/22 04/12/23 04/11/23 History mcg/actuation nasal spray,suspension (Children's Flonase Allergy Relief) amlodipine 5 mg tablet 2.5 mg PO DAILY 04/12/23 04/12/23 04/11/23 History atenolol 50 mg tablet 25 mg PO BID 04/12/23 04/12/23 04/11/23 History losartan 100 mg tablet See Rx Instructions .Route .COMPLEX 04/12/23 04/12/23 04/11/23 History Allergies Allergy/AdvReac Type Severity Reaction Status Date / Time lisinopril Allergy Unknown ADR-Cough Verified 04/12/23 11:10 Current Medications Generic Name Dose Route Start Last Admin Trade Name Freq PRN Reason Stop Dose Admin Aspirin 81 mg 04/12/23 15:58 04/12/23 17:02 Aspirin 81 Mg Ec Tablet PO 81 mg DAILY MAYI Administration Enoxaparin Sodium 80 mg 04/12/23 16:00 04/12/23 17:02 Enoxaparin 80 Mg/0.8 Ml Syringe SUBCUT 80 mg Q12H MAYI Administration Sodium Chloride 1,000 mls @ 75 mls/hr 04/12/23 15:15 04/12/23 17:07 Sodium Chloride 0.9% IV 75 mls/hr .[id number] MAYI Administration PFSH Acute 2 PFSH: Medical History Osteoarthritis Shortness of breath Chest pain HTN (hypertension) COPD (chronic obstructive pulmonary disease) Hyperlipidemia Surgical History H/O thumb surgery S/P cataract surgery Family History Mother Stroke Cancer Dementia Grandfather Cancer Grandmother Cancer Father Lung disease Denies family history of Diabetes CAD (coronary artery disease) Clotting disorder Chronic kidney disease (CKD) Suicide Anesthesia complication Bleeding disorder Social History Smoking and tobacco/nicotine status: current every day tobacco/nicotine user (0.5 ppd) cigarettes Packs smoked per day: 2.5 Years cigarettes smoked: 53 [ Other cigarette details: Started at age 17 years] Quit status (tobacco/nicotine): considering quitting Alcohol intake: current Alcohol intake frequency: 0-2 Drinks per Day Alcohol type: beer Substance/Drug Use: never Lives independently: Yes Household members: spouse Marital status: service: Yes Current occupational status: retired Do you think of yourself as: Straight/Heterosexual Current gender identity: Male Vitals/I&O/Wt Last Vital Signs Temp 98.0 F 04/12/23 16:00 Pulse 82 04/12/23 16:00 Resp 18 04/12/23 16:00 BP 126/81 04/12/23 16:00 Pulse Ox 92 04/12/23 16:00 O2 Del Method Room Air 04/12/23 16:00 04/12/23 04/12/23 04/12/23 06:59 14:59 22:59 Intake Total 1000 / 1000 Balance 1000 / 1000 Weight last 48 hrs Weight 186 lb Weight 186 lb Physical Exam 2 Narrative: GENERAL: Patient is alert, awake and oriented x3. [] NECK: No jugular vein distension. [] HEENT: No cyanosis. No icterus. No pallor. [] HEART: Regular S1 and S2. No murmur, rub or gallop. [] LUNGS: Has bilateral wheezing CENTRAL NERVOUS SYSTEM: Grossly nonfocal. [] EXTREMITIES: Lower extremities with 1+ edema bilaterally. Data 04/13/23 04:35 04/13/23 04:35 A&P Assessment and plan (1) Chest pain: Qualifiers: Chest pain type: unspecified Qualified Code(s): R07.9 - Chest pain, unspecified (2) HTN (hypertension): Qualifiers: Hypertension type: essential hypertension Qualified Code(s): I10 - Essential (primary) hypertension (3) Hyperlipidemia: Qualifiers: Hyperlipidemia type: other hyperlipidemia Qualified Code(s): E78.49 - Other hyperlipidemia (4) Atherosclerosis of coronary artery of [place] heart without angina pectoris: Plan Patient's chest pain symptoms have both typical and atypical features however it is improved with nitros. He has been taking several nitros every day. He has active wheezing. He is not able to do exercise stress test and with active wheezing, will not be a candidate for a Lexiscan. Keep NPO. In the morning we will decide on further management. He may need coronary angiography. Echo shows normal LV systolic function. Thank you for involving us with care of this patient. We will continue to follow. Please call with questions. Consult Attestations 2 Medical Necessity Statement: Care expected to cross 2 midnights. Coding Level of Care Code Acute Code for [facility] Diagnoses Chest pain, unspecified type R07.9 Chest pain type: unspecified Essential hypertension I10 Hypertension type: essential hypertension Other hyperlipidemia E78.49 Hyperlipidemia type: other hyperlipidemia Atherosclerosis of coronary artery of [place] heart without angina pectoris I25.10
[2023-04-12] MEDS: isosorbide mononitrate ER 30 mg Tablet 15 MG PO (18:59)
[2023-04-12] MEDS: atenolol 50 mg Tablet 25 MG PO (18:59)
[2023-04-12] MEDS: losartan 50 mg Tablet PO (18:59)
[2023-04-12] MEDS: ipratropium-albuterol 3 mL Neb INHALATION (21:23)
[2023-04-13] VITALS (18 sets, daily range): BP systolic 104–144; BP diastolic 60–83; PULSE 77–91; RESP 12–27; TEMP 36.5–37; O2SAT 91–97
[2023-04-13 04:50] LABS: Basophils % 0.1 %; Eosinophils % 0.1 %; Hematocrit 41.2 % (37-53); Lymphocytes % 10.2 %; Mean Corpuscular HGB Conc 35.2 g/dL (30-55); Mean Corpuscular Hemoglobin 31.3 pg (27-33); Monocytes # 0.6 10^3/uL (0.2-0.9); Monocytes % 6.1 %; Neutrophils # 8.34 10^3/uL (1.8-7.7); Neutrophils % 83.1 %; Nucleated Red Blood Cells % 0 %; Platelet Count 224 10^3/cmm (157-399); Red Blood Count 4.63 10^6/uL (3.85-5.65); Red Cell Distribution Width 12.7 % (12.1-15.1); White Blood Count 10.03 10^3/uL (3.29-11.43)
[2023-04-13 05:20] LABS: Alanine Aminotransferase 10 U/L (0-41); Albumin Level 3.9 g/dL (3.5-5.2); Alkaline Phosphatase 73 U/L (40-130); Anion Gap 16.4 (5-19); Aspartate Amino Transferase 23 U/L (0-40); Blood Urea Nitrogen 18 mg/dL (8-23); Calcium 9.2 mg/dL (8.5-10.5); Carbon Dioxide 25 mmol/L (22-29); Chloride 94 mmol/L (98-107); Glucose 120 mg/dL (65-115); Magnesium 1.6 mg/dL (1.7-2.3); Osmolality Calculated 277 mOsm/kg (285-295); Potassium 3.4 mmol/L (3.5-5.1); Sodium 132 mmol/L (136-145); Total Bilirubin 0.5 mg/dL (0.15-1.2); Total Protein 6.9 g/dL (6.6-8.7)
[2023-04-13] MEDS: sodium chloride 0.9% 1,000 ML 75 ML IV ×2 (05:21→18:45)
[2023-04-13] MEDS: ipratropium-albuterol 3 mL Neb INHALATION ×5 (05:40→21:11)
[2023-04-13 05:58] LABS: Add Urine Microscopic? YES; Bilirubin Urine Neg (Negative); Blood Urine 2+ (Negative); Glucose Urine UA Norm (Normal); Ketones Urine Negative (Negative); Leukocyte Esterase Urine Negative (Negative); Nitrate Urine Negative (Negative); Protein Urine Neg (Negative); Urine Appearance Hazy (CLEAR); Urine Color Yellow (Yellow); Urobilinogen Urine Neg (Negative); pH Urine 5 (5-7)
[2023-04-13 05:59] LABS: Add Urine Culture? Yes; Bacteria Urine 3+ /hpf; RBC Urine 0-4 /hpf (0-2); Transitional Epi Cells Urine 0-4 /hpf
[2023-04-13] MEDS: isosorbide mononitrate ER 30 mg Tablet 15 MG PO ×2 (08:47→17:22)
[2023-04-13] MEDS: clopidogrel 75 mg Tablet PO (08:48)
[2023-04-13] MEDS: aspirin 81 mg EC Tablet PO (08:48)
[2023-04-13] MEDS: pantoprazole DR 40 mg Tablet PO (08:48)
[2023-04-13] MEDS: atenolol 50 mg Tablet 25 MG PO ×2 (09:46→17:27)
--- NOTE | 2023-04-13 10:00 | P.PN_ITS ---
Subjective 2 Subjective: Patient has not had any recurrence of chest pain since the hospital admission. According the patient's , he had a 3 episodes of prolonged chest pain within the last 1 month, each time requiring 3 sublingual nitro. His EKG showed diffuse nonspecific ST-T changes in the anterolateral leads. The echocardiogram done yesterday was unremarkable. No significant wall motion abnormalities. Patient still has significant shortness of breath and wheezing. Medications: Medication Review Details: Current Medications Acetaminophen (Acetaminophen 325 Mg Tablet) 650 mg PO Q6H PRN PRN Reason: Mild/Mod Pain Or Temp >/= 101 Albuterol/Ipratropium (Ipratropium-Albuterol 3 Ml Neb) 3 ml INHALATION Q6H PRN PRN Reason: SHORTNESS OF BREATH Last Admin: 04/13/23 10:01 Dose: 3 ml Aspirin (Aspirin 81 Mg Ec Tablet) 81 mg PO DAILY [facility] Last Admin: 04/13/23 08:48 Dose: 81 mg Atenolol (Atenolol 50 Mg Tablet) 25 mg PO BID [facility] Last Admin: 04/13/23 09:46 Dose: 25 mg Clopidogrel Bisulfate (Clopidogrel 75 Mg Tablet) 75 mg PO DAILY [facility] Last Admin: 04/13/23 08:48 Dose: 75 mg Enoxaparin Sodium (Enoxaparin 80 Mg/0.8 Ml Syringe) 80 mg SUBCUT Q12H [facility] Last Admin: 04/13/23 05:18 Dose: Not Given Sodium Chloride (Sodium Chloride 0.9%) 1,000 mls @ 75 mls/hr IV .[id number] [facility] Last Admin: 04/13/23 05:21 Dose: 75 mls/hr Isosorbide Mononitrate (Isosorbide Mononitrate Er 30 Mg Tablet) 15 mg PO BID [facility] Last Admin: 04/13/23 08:47 Dose: 15 mg Losartan Potassium (Losartan 50 Mg Tablet) 100 mg PO QAM [facility] Last Admin: 04/13/23 05:17 Dose: Not Given Losartan Potassium (Losartan 50 Mg Tablet) 50 mg PO QPM [facility] Last Admin: 04/12/23 18:59 Dose: 50 mg Morphine Sulfate (Morphine 4 Mg/Ml Sdv 1 Ml) 2 mg IVP Q4H PRN PRN Reason: SEVERE PAIN Ondansetron HCl (Ondansetron 2 Mg/Ml Sdv 2 Ml) 4 mg IVP Q8H PRN PRN Reason: vomiting, or N/V if npo Pantoprazole Sodium (Pantoprazole Dr 40 Mg Tablet) 40 mg PO DAILY MAYI Last Admin: 04/13/23 08:48 Dose: 40 mg Vitals/I&O/Wt Last Vital Signs Temp 97.7 F 04/13/23 07:53 Pulse 82 04/13/23 07:53 Resp 27 H 04/13/23 07:53 BP 144/83 04/13/23 07:53 Pulse Ox 92 04/13/23 07:53 O2 Del Method Room Air 04/13/23 07:53 04/12/23 04/13/23 04/13/23 22:59 06:59 14:59 Intake Total 1240 / 1240 1000 / 2240 Output Total 100 / 100 Balance 1240 / 1240 900 / 2140 Weight last 48 hrs Weight 186 lb Weight 186 lb Weight 186 lb Physical Exam 2 Narrative: GENERAL: The patient is alert and oriented times three. Not in any acute distress. HEENT: No significant pallor, icterus or lymphadenopathy.Oral cavity: There are no mucous membrane lesions. NECK: Trachea appears to be central. No masses noted. No JVD or thyromegaly appreciated. RESPIRATORY: Chest is symmetrical. No intercostals muscle retraction or any accessory muscle activation. There is no chest wall tenderness. Breath sounds are heard bilaterally. Bilateral expiratory wheezing and some occasional coarse crackles. HEART: The heart sounds are normal. No S3 or S4. No significant murmurs. No pericardial rub ABDOMEN: No vessel pulsations or distention. No tenderness. No organomegaly appreciated. Bowel sounds are normally heard. : Deferred. RECTAL: Deferred. LYMPHATIC: No lymphadenopathy noted in the neck. EXTREMITIES: No edema or cyanosis. No clubbing. MUSCULOSKELETAL: No acute joint deformities or swelling SKIN: There are no significant rashes or ecchymosis NEUROPSYCHIATRIC: The patient is alert and oriented x3. Appears to be in a good mood. No tremors or rigidity noted. Data 04/13/23 04:35 04/13/23 04:35 Other Labs: Laboratory Last Values WBC 10.03 10^3/uL (3.29-11.43) 04/13/23 04:35 RBC 4.63 10^6/uL (3.85-5.65) 04/13/23 04:35 Hgb 14.50 g/dL (11.27-16.99) 04/13/23 04:35 Hct 41.2 % (37-53) 04/13/23 04:35 MCV 89.0 fl (82-101) 04/13/23 04:35 MCH 31.3 pg (27-33) 04/13/23 04:35 MCHC 35.2 g/dL (30-55) 04/13/23 04:35 RDW 12.7 % (12.1-15.1) 04/13/23 04:35 Plt Count 224 10^3/cmm (157-399) 04/13/23 04:35 MPV 9.0 fL (7.4-10.4) 04/13/23 04:35 Neut % (Auto) 83.1 % 04/13/23 04:35 Lymph % (Auto) 10.2 % 04/13/23 04:35 [place] % (Auto) 6.1 % 04/13/23 04:35 Eos % (Auto) 0.1 % 04/13/23 04:35 Baso % (Auto) 0.1 % 04/13/23 04:35 Neut # (Auto) 8.34 10^3/uL (1.8-7.7) H 04/13/23 04:35 Lymph # (Auto) 1.0 10^3/uL (0.8-4.8) 04/13/23 04:35 [place] # (Auto) 0.6 10^3/uL (0.2-0.9) 04/13/23 04:35 Eos # (Auto) 0.0 10^3/uL (0.0-0.8) 04/13/23 04:35 Baso # (Auto) 0.0 10^3/uL (0.0-0.1) 04/13/23 04:35 Nucleated RBC % (auto) 0 % 04/13/23 04:35 Nucleated RBCs # 0.0 /100WBC 04/13/23 04:35 Sodium 132 mmol/L (136-145) L 04/13/23 04:35 Potassium 3.4 mmol/L (3.5-5.1) L 04/13/23 04:35 Chloride 94 mmol/L (98-107) L 04/13/23 04:35 Carbon Dioxide 25 mmol/L (22-29) 04/13/23 04:35 Anion Gap 16.4 (5-19) 04/13/23 04:35 BUN 18 mg/dL (8-23) 04/13/23 04:35 Creatinine 1.0 mg/dL (0.7-1.2) 04/13/23 04:35 GFR Calculation Not Reportable 04/13/23 04:35 Glucose 120 mg/dL (65-115) H 04/13/23 04:35 Estimat Average Glucose 114 04/12/23 10:46 Hemoglobin A1c 5.6 % (4.0-6.0) 04/12/23 10:46 Calculated Osmolality 277 mOsm/kg (285-295) L 04/13/23 04:35 Calcium 9.2 mg/dL (8.5-10.5) 04/13/23 04:35 Magnesium 1.6 mg/dL (1.7-2.3) L 04/13/23 04:35 Total Bilirubin 0.5 mg/dL (0.15-1.2) 04/13/23 04:35 AST 23 U/L (0-40) 04/13/23 04:35 ALT 10 U/L (0-41) 04/13/23 04:35 Alkaline Phosphatase 73 U/L (40-130) 04/13/23 04:35 Troponin T Baseline 14 ng/L (0-15) 04/12/23 10:46 Troponin T 120 Minute 11.70 ng/L (0-15) 04/12/23 12:13 Delta Troponin T -2.30 ABS# (0-10) L 04/12/23 12:13 Troponin T Hi Sens 6Hr 9.50 ng/L (0-15) 04/12/23 17:24 Troponin T Hi Sens 6Hr Delta -4.50 ng/L (0-12) L 04/12/23 17:24 NT-Pro-B Natriuret Pep 193 pg/mL (0-125) H 04/12/23 10:46 Total Protein 6.9 g/dL (6.6-8.7) 04/13/23 04:35 Albumin 3.9 g/dL (3.5-5.2) 04/13/23 04:35 Globulin 3.0 g/dL (1.3-4.6) 04/13/23 04:35 Lipase 14 U/L (13-60) 04/12/23 10:46 TSH 1.31 uIU/mL (0.27-4.20) 04/12/23 10:46 Urine Color Yellow (Yellow) 04/13/23 05:15 Urine Appearance Hazy (CLEAR) A 04/13/23 05:15 Urine pH 5 (5-7) 04/13/23 05:15 Ur Specific [place] 1.020 (1.005-1.030) 04/13/23 05:15 Urine Protein Neg (Negative) 04/13/23 05:15 Urine Glucose (UA) Norm (Normal) 04/13/23 05:15 Urine Ketones Negative (Negative) 04/13/23 05:15 Urine Blood 2+ (Negative) H 04/13/23 05:15 Urine Nitrate Negative (Negative) 04/13/23 05:15 Urine Bilirubin Neg (Negative) 04/13/23 05:15 Urine Urobilinogen Neg mg/dL (Negative) 04/13/23 05:15 Ur Leukocyte Esterase Negative (Negative) 04/13/23 05:15 Urine RBC 0-4 /hpf (0-2) H 04/13/23 05:15 Urine WBC 5-10 /hpf (0-5) H 04/13/23 05:15 Ur Squamous Epith Cells None /hpf (0-5) 04/13/23 05:15 Ur Transition Epith Cell 0-4 /hpf 04/13/23 05:15 Amorphous Sediment Not Reportable 04/13/23 05:15 Urine Bacteria 3+ /hpf (NONE) H 04/13/23 05:15 Other data: Echocardiogram from 04/12/2023 Normal left ventricular size and systolic function, EF 59 %. No regional wall motion abnormalities. Mild mitral annular calcification. Thickened aortic valve. There is no pericardial effusion. Possible large left-sided pleural effusion Technically difficult study because of poor ultrasonic window A&P Assessment and plan (1) Atherosclerotic heart disease of [place] coronary artery with unstable angina pectoris: The patient's symptoms are suggestive of accelerated angina. The EKG changes may assess standard lateral wall ischemia. Echo is unremarkable. No evidence of microinjury so far. Patient is on therapeutic dose of subcu Lovenox. May be continue on the other current medications. The COPD exacerbations might be contributing to the unstable angina. Need to consider cardiac catheterization to further evaluate the coronary status, once respiratory status is stable. Qualifiers: [place] vs. transplanted heart: [place] heart Qualified Code(s): I25.110 - Atherosclerotic heart disease of [place] coronary artery with unstable angina pectoris (2) Hyperlipidemia: Continue on the current medications. Qualifiers: Hyperlipidemia type: other hyperlipidemia Qualified Code(s): E78.49 - Other hyperlipidemia (3) HTN (hypertension): Will optimize the antihypertensive medication Qualifiers: Hypertension type: essential hypertension Qualified Code(s): I10 - Essential (primary) hypertension (4) COPD exacerbation: Management as per the primary. Plan Based on the clinical progress, further management decisions will be made. Possible cardiac catheterization tomorrow, if the respiratory status is stable. Attestations 2 Medical Necessity Statement*: Patient requires continued hospital stay for close monitoring and further management Coding Level of Care Code 45230 Diagnoses Atherosclerosis of [place] coronary artery of [place] heart with unstable angina pectoris I25.110 [place] vs. transplanted heart: [place] heart Other hyperlipidemia E78.49 Hyperlipidemia type: other hyperlipidemia Essential hypertension I10 Hypertension type: essential hypertension COPD exacerbation J44.1
--- NOTE | 2023-04-13 10:33 | PC.CHAP ---
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 teacher visit [] Patient/Family/Request visit [] Outpatient visit [] Follow-up visit [] Physician referral [] Code/Alert [x] Routine visit [] Staff referral [] Actively dying [] Patient sleeping [] Family support [] [] Out of room [] Palliative care [] [x] Receiving care in room [] Pre-surgical visit [] Trauma [] Long length of stay [] ICU visit [] Other: Relational/Emotional Strength [x] Patient feels connected with others/family/visitors/staff [] Distress [] Loneliness/isolation [] Abandonment Spirituality of Patient [x] Person of Tina [] Attends [employer] of their Tina [x] Believes in Prayer [] Reads Bible or Sikh materials [] There are Spiritual issues to be 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 [x] Prayer [x] Active listening [x] Non-anxious presence [x] Spiritual/emotional support [] Crisis/trauma care [x] Spiritual counseling [] Bereavement support [] Provided bereavement packet [] Provided Bible/devotional materials [] Provided toy/stuffed animal, coloring book to patient or family member [] Provided Communion [] Anointing/[place] [] Salvation [x] Completed spiritual assessment [] Other: Impact on Illness or Injury [] Angry [] Fearful [] Anxious [] Often cries [] Exhaustion [] Unable to work [] Unable to attend bahai [] Unable to walk/stand [] Unable to read [] Unable to drive [] Unable to eat/drink [] Unable to sleep [] Unable to be with family [] Patient intubated [] Other: Summary cleaned one arttery well go home and 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
--- NOTE | 2023-04-13 12:03 | PM.PN ---
Subjective Subjective: Seen this morning. He has been chest pain free overnight. Does have some wheezing present. He still NPO. Vitals/I&O/Wt Last Vital Signs Temp 97.7 F 04/13/23 07:53 Pulse 77 04/13/23 08:00 Resp 18 04/13/23 08:00 BP 144/83 04/13/23 07:53 Pulse Ox 93 04/13/23 08:00 O2 Del Method Room Air 04/13/23 08:00 04/12/23 04/13/23 04/13/23 22:59 06:59 14:59 Intake Total 1240 / 1240 1000 / 2240 Output Total 100 / 100 Balance 1240 / 1240 900 / 2140 Weight last 48 hrs Weight 84.368 kg Weight 84.368 kg Weight 84.368 kg Physical Exam Narrative: General: Alert oriented x3, patient seen sitting up in bed, chest pain-free. HEENT: Normocephalic, atraumatic, EOMI, breathing comfortably on room air. Cardio: Regular rate rhythm, normal S1-S2, Respiratory: Mild wheezing present. GI: Abdomen soft, nontender, nondistended, bowel sounds + Behavior: Appropriate and cooperative Extremities: No edema noted. Data 04/13/23 04:35 04/13/23 04:35 A&P Assessment and plan (1) HTN (hypertension): Qualifiers: Hypertension type: essential hypertension Qualified Code(s): I10 - Essential (primary) hypertension (2) Chest pain: Qualifiers: Chest pain type: unspecified Qualified Code(s): R07.9 - Chest pain, unspecified (3) Atherosclerosis of coronary artery of [place] heart without angina pectoris: (4) Hyperlipidemia: Qualifiers: Hyperlipidemia type: other hyperlipidemia Qualified Code(s): E78.49 - Other hyperlipidemia (5) COPD (chronic obstructive pulmonary disease): (6) Shortness of breath: (7) Nicotine addiction: Plan #Unstable angina #Coronary artery disease 50% RCA lesion #Hypertension #COPD exacerbation #Hypokalemia #Hypomagnesemia ? Start on ACS protocol to treat for unstable angina. Aspirin, loaded with Plavix, Plavix daily, continue atenolol. Continue therapeutic Lovenox every 12 hours ? Continue Imdur, Nitropaste ? Consult cardiology. Patient will need an angiogram however due to respiratory status we will be waiting to improve that first. ? Check hemoglobin A1c, 5.6 lipid panel, TSH 1.31 ? Check BNP 193 ? Delta troponin -4.50 e ? Serial EKGs -Echo pending at this time. - Continue to monitor on telemetry. -Switch to DuoNeb every 6 hours scheduled ? Incentive spirometer, flutter valve Solu-Medrol 40 every 8 hours Azithromycin 500 daily for anti-inflammatory purposes to treat for COPD exacerbation Started on ceftriaxone for UTI. Urine culture pending. UA abnormal. ? Replete potassium and magnesium today. DNR/DNI he states if he goes let him go. I do not want any interventions. Attestations Medical Necessity Statement*: Will require continued hospitalization for UTI, unstable angina Diagnoses Essential hypertension I10 Hypertension type: essential hypertension Chest pain, unspecified type R07.9 Chest pain type: unspecified Atherosclerosis of coronary artery of [place] heart without angina pectoris I25.10 Other hyperlipidemia E78.49 Hyperlipidemia type: other hyperlipidemia COPD (chronic obstructive pulmonary disease) J44.9 Shortness of breath R06.02 Nicotine addiction F17.200
[2023-04-13] MEDS: azithromycin 500 MG in sodium chloride 0.9% 250 ML 250 MG IV (12:33)
[2023-04-13] MEDS: methylPREDNISolone sod succ 40 mg/mL INJ IVP ×2 (12:33→19:14)
[2023-04-13] MEDS: potassium chloride ER 20 mEq Tablet 40 MEQ PO (13:38)
[2023-04-13] MEDS: magnesium sulfate premix 2 GM/50 ML PIGGYBACK IV (13:40)
[2023-04-13] MEDS: enoxaparin 80 mg/0.8 mL Syringe SUBCUT (17:22)
[2023-04-13] MEDS: losartan 50 mg Tablet PO (17:23)
--- NOTE | 2023-04-13 18:01 | PC.NURSE ---
Patient is requesting a refill on his nitroglycerin at discharge.
[2023-04-14] VITALS (13 sets, daily range): BP systolic 114–136; BP diastolic 55–84; PULSE 66–91; RESP 18–28; TEMP 36.7–37; O2SAT 88–95
[2023-04-14] MEDS: sodium chloride 0.9% 1,000 ML 75 ML IV (03:41)
[2023-04-14] MEDS: methylPREDNISolone sod succ 40 mg/mL INJ IVP ×2 (03:41→11:57)
[2023-04-14 04:07] LABS: Basophils % 0.1 %; Hematocrit 36.2 % (37-53); Lymphocytes # 0.9 10^3/uL (0.8-4.8); Lymphocytes % 5.8 %; Mean Corpuscular HGB Conc 35.4 g/dL (30-55); Mean Corpuscular Hemoglobin 32.2 pg (27-33); Mean Platelet Volume 9.1 fL (7.4-10.4); Monocytes # 0.4 10^3/uL (0.2-0.9); Monocytes % 2.2 %; Neutrophils # 14.44 10^3/uL (1.8-7.7); Neutrophils % 91.5 %; Nucleated Red Blood Cells % 0 %; Platelet Count 206 10^3/cmm (157-399); Red Blood Count 3.98 10^6/uL (3.85-5.65); Red Cell Distribution Width 12.9 % (12.1-15.1); White Blood Count 15.78 10^3/uL (3.29-11.43)
[2023-04-14 04:30] LABS: Anion Gap 11.4 (5-19); Blood Urea Nitrogen 18 mg/dL (8-23); Calcium 8.7 mg/dL (8.5-10.5); Carbon Dioxide 25 mmol/L (22-29); Chloride 103 mmol/L (98-107); Glucose 144 mg/dL (65-115); Magnesium 1.8 mg/dL (1.7-2.3); Osmolality Calculated 284 mOsm/kg (285-295); Potassium 4.4 mmol/L (3.5-5.1); Sodium 135 mmol/L (136-145)
[2023-04-14] MEDS: losartan 50 mg Tablet 100 MG PO (05:51)
--- NOTE | 2023-04-14 06:52 | XACV_ITS ---
Exam Room: [facility] Ht: 180 cm Wt: 84 kg BSA: 2.07 m2 Gender: Male : 1950 Any Known Allergies: Other Exam Priority: Routine Indication(s): - Unstable angina Procedure(s): Procedure Description: Diagnostic procedure Procedure Description: Left Heart Catheterization Procedure Description: Aortic Arch Angiography Procedure Description: Coronary Angiography Raul HAWLEY; Diagnostic Cath Status: Urgent Diagnostic Findings * The left main is a medium caliber vessel with no significant stenotic lesions. * The left anterior descending artery is a medium caliber vessel which appears to wrap around the LV apex minimally. No significant stenotic lesions were noted. It gives of a high diagonal branch which was found to have around 30% ostial narrowing. No other significant stenotic lesions were noted.. * The intermedius artery is a small to medium caliber vessel , appears to be a high diagonal branch with no significant stenotic lesions. * The left circumflex artery is a medium caliber vessel with no significant stenotic lesions. * The right coronary artery has a high and posterior takeoff. At the takeoff of the sinus ramsey branch, there is a 650% tubular narrowing. The distal artery appears to have no significant stenotic lesions. * No disease noted in the Left Main, Left Anterior Descending, Right, or Circumflex coronary arteries. * Coronary angiography shows right dominance. Conclusions 1. 73-year-old white male with history of atherosclerotic heart diseas, and COPD, presented to the features of COPD exacerbation and increasing episodes of chest pain. The EKG showed nonspecific ST-T changes. In view of his worsening chest pains and the previous history for atherosclerotic heart disease, in order to further evaluate his coronary status, a repeat cardiac catheterization was recommended. Patient underwent left heart catheterization with left and right coronary angiogram and aortogram today. He also has a history of dilatation of the aortic sinuses. The findings are as follows. 2. The left main is a medium caliber vessel with no significant stenotic lesion. Left anterior descending artery with no significant lesions. The first diagonal artery was found to have a 30% ostial stenosis. Circumflex artery was found to have no significant lesions. The right coronary artery was found to have around 50% lesion proximally at the origin of the sinus ramsey branch. No other significant stenotic lesions. LVEDP 21 mmHg. Aortic root angiogram revealed prominent aortic root sinuses. No aneurysm are noted. 3. The coronary lesion was found to be similar to the one done previously with no significant change.. 4. No disease noted in the Left Main, Left Anterior Descending, Right, or Circumflex coronary arteries. Recommendations * Continue current medical management and risk factor modification. Diagnostic RX Recommendation: medical therapy and/or counseling LV EDP: 21 mmHg Left Ventriculography Findings: * LV gram was not performed because of the concern dye overload. Patient was found to have dilated aortic root with the previous angiogram. So it was decided to do a aortogram by placing the pigtail catheter at the level of the sinuses. The coronary sinuses were found to be very prominent with no aneurysm. The ascending aorta was found to be at the upper limit of normal size. No evidence of aneurysm or dissection were noted.. Pressures Phase:Rest AO : 115 / 76 ( 94 ) @ 9:45:00 AM 126 / 72 ( 94 ) @ 9:51:00 AM 132 / 65 ( 94 ) @ 9:51:00 AM 114 / 61 ( 84 ) @ 9:52:00 AM 135 / 84 ( 105 ) @ 9:54:00 AM LV : 132 / 6 / 25 @ 9:51:00 AM 133 / 4 / 26 @ 9:51:00 AM Valves Phase:DefaultPhase AV : 8.0 @ 10:01:00 AM 8.0 @ 10:01:00 AM AV Mean Gradient: 11.0 @ 10:01:00 AM Clinical Evaluation EBL: 5mL-10mL Procedural Details Procedure Consent Obtained. Admit Source: In Patient. Current Diagnosis : Unstable angina. Pre-Procedure Time Out. Identified patient by full name and date of as verbalized by the patient/guarantor. Does the consent match the physician's order: Yes. Accurate & Complete Informed Consent: Yes. Inpatient/Outpatient History & Physical on Chart: Yes. If H&P is completed, is and addenduem needed: No; If yes, is the addendum complete: N/A. Visualize and Verify Site with Patient/Guarantor: N/A. Relevant Radiology Images available: N/A. The risks, benefits, and alternatives of sedation and/or procedure were discussed by physician. The patient agrees to continue. Procedure started. [facility] Clinical Fraility Score: 3: Managing Well. Dural Mechanic Indications: Worsening Angina. Chest Pain Symptom Assessment: Typical Angina Symptoms. Cardiovascular Instability: No, stable. Correct patient, site and procedure confirmed by cath team. Current diagnosis: Unstable angina. PERRLA. Strong, equal hand manager intelligence bilaterally. Lungs clear x 5 lobes. IV Site on Arrival: 20 gauge in the left anticubital. IV Fluids: 0.9% NaCl at KVO. 500 mL infused prior to lab associate. Pre Procedural Pulses: bilateral posterior tibial was 3+. Pre Procedural Pulses: bilateral dorsalis pedis was 3+. Pre Procedural Pulses: bilateral radial was 3+. Oxygen started at 3liters/min via nasal canula. right groin was prepped with chloroprep then draped in the usual sterile fashion. right radial was prepped with chloroprep then draped in the usual sterile fashion. Physician notified. Baseline sample Acquired. HR: 76 BPM. Family updated by md prior to the start of the procedure. Physician arrived. Equipment: 5F - Femoral. Heparinized Saline (2 units/mL), 1000 mL bag. Cardiac Cath Pack. ACIST Manifold Kit Model BT 2000. Physician scrubbed in. Immediate Pre-Procedure Time Out. Correct Patient: Yes; Correct Procedure: Yes; Correct Site: Yes; Correct Patient Position: Yes; Correct Supplies: Yes; Dried Flammable Prep: Yes; Blood Products Available: N/A;. Lidocaine 1% infiltrated to the right radial. Arterial access obtained. A 5 azerbaijani Dustin catheter in over wire. Multiple views taken of left coronary artery. Catheter redirected to the RCA. Unable to seat catheter. Catheter removed over the wire. A 5 azerbaijani JR4 catheter in over wire. Unable to seat catheter. Catheter removed over the wire. A 5 azerbaijani 3DRC catheter in over wire. Unable to seat catheter. Catheter removed over the wire. A 5 azerbaijani TIG catheter in over wire. Multiple views taken of right coronary artery. Catheter removed over the wire. A CRD 5F 145 Angled Pig Diagnostic Catheter was advanced over the wire and used for LVED evaluation. Dr Michel arrived. Review of films. EDP Sample taken: LV 132/6,25; HR: 78 BPM; SpO2: 94%. Pullback taken: LV 133/4,26; AO 126/72(94); Mean: 11mmHg, Peak to Peak: 8mmHg, SEP: 19sec/min; HR: 78 BPM; SpO2: 94%. Aortic root injection performed in MALIAN @ 18 mL/second for a total of 36 mL. Catheter removed over the wire. Physician review of films. Physician scrubbed out. A TR Band was successful obtaining hemostatsis at the Right Radial artery insertion site. TR band placed. Hemostasis obtained. Post Procedure: Pulses reassessed and unchanged. PERRLA. Strong, equal hand manager intelligence bilaterally. No VTE prophylaxis required. Medication waste: Lidocaine- 2 ml Heparin- 1000 units Nitro- 49.7 mg. Total IV fluids: 50 mL. Fluoro: 17:01. Contrast type used: Omnipaque 300 mgI/mL, 500 mL bottle. [id number]. Post-op diagnosis: Moderate CAD; Aortic root dilation. Complications: None. Estimated blood loss: 5mL-10mL. Responsiveness - Normal response to verbal stimuli; alert and oriented, PERRLA. Airway - Unaffected, no intervention required; spontaneous ventilation. Circulation: W/N/L, pulses unchanged. Nausea/Vomiting: No. Procedure completed. Patient transferred by wheelchair to 1st floor. Vital chart was stopped. Access Site Site: Right Radial artery Sheath Size: 6 Fr Hemostasis Method: TR Band Hemostasis Success: Successful Procedure Medications Start: 9:11 AM Stop: 9:11 AM Medication: Fentanyl Amount: 50 mcg Route: I.V. Start: 9:11 AM Stop: 9:11 AM Medication: Versed Amount: 1 mg Route: I.V. Start: 9:20 AM Stop: 9:20 AM Medication: Versed Amount: 1 mg Route: I.V. Start: 9:20 AM Stop: 9:20 AM Medication: Fentanyl Amount: 50 mcg Route: I.V. Start: 9:25 AM Stop: 9:25 AM Medication: Nitrogylcerin Amount: 200 mcg Route: I.A. Start: 9:25 AM Stop: 9:25 AM Medication: Verapamil Amount: 5 mg Route: I.A. Start: 9:25 AM Stop: 9:25 AM Medication: Heparin Amount: 5000 units Route: I.V. Start: 9:48 AM Stop: 9:48 AM Medication: Nitrogylcerin Amount: 100 mcg Route: I.A. I, the attending physician, have reviewed and verified all procedure medications. Yes, all medications given per verbal order History/Risk Factors Hypertension: Yes Dyslipidemia: Yes Peripheral Arterial Disease (PAD): No Myocardial Infarction (PA): No Obesity: No Renal Disease: No Tobacco Use: Current/Recent(w/in 1 year) Prior Interventions PCI: No CABG: No Valve Surgery: No Report Signatures Finalized by Dr Steffi Carter MD [facility] on 04/14/2023 03:53 PM
[2023-04-14] MEDS: diphenhydrAMINE 50 mg Capsule PO (07:32)
[2023-04-14] MEDS: aspirin 325 mg Tablet PO (07:32)
[2023-04-14] MEDS: ipratropium-albuterol 3 mL Neb INHALATION ×3 (08:27→15:02)
--- NOTE | 2023-04-14 08:33 | W.PM.OPSUD ---
Surgery/Procedure H&P Update DATE OF PROCEDURE: April 14, 2023 DATE H&P PERFORMED: 04/12/23 H&P UPDATE INFORMATION: I have reviewed H&P completed within last 30 days, I have examined patient prior to procedure and No changes to prior documentation PREOP DIAGNOSIS: ASHD/unstable angina PRIMARY INDICATION FOR PROCEDURE: Patient with history of ASHD, presenting with unstable anginal symptoms and nonspecific EKG changes PLANNED PROCEDURE: Left heart catheterization with left and right coronary angiogram, LV angiogram and possible PCI PATIENT REASSESSED PRIOR TO SEDATION, WITH NO CHANGE NOTED: Yes PHYSICAL EXAM: oriented x 3 and clear to auscultation bilaterally (Bilateral scattered expiratory wheezes) AIRWAY EVAL/ANESTHESIA PLAN: normal airway (Bilateral expiratory wheezing. History of COPD/reactive airway disease), see other exam findings, ASA III, Monitored Anesthesia, Local Anesthesia, Risks, benefits & alternatives of sedation and/or procedure discussed and Patient agrees to continue as planned
--- NOTE | 2023-04-14 08:35 | PM.PN ---
Subjective Subjective: Patient is not having any chest pain. His breathing is better. Still complaining of a lot of postnasal drainage and stuffy nose. He is able to hold a conversation well. Telemetry shows sinus rhythm with no significant arrhythmias. The cardiac enzymes are negative for microinjury so far. Medications: Medication Review Details: Current Medications Acetaminophen (Acetaminophen 325 Mg Tablet) 650 mg PO Q6H PRN PRN Reason: Mild/Mod Pain Or Temp >/= 101 Albuterol/Ipratropium (Ipratropium-Albuterol 3 Ml Neb) 3 ml INHALATION Q6H PRN PRN Reason: SHORTNESS OF BREATH Last Admin: 04/13/23 10:01 Dose: 3 ml Albuterol/Ipratropium (Ipratropium-Albuterol 3 Ml Neb) 3 ml INHALATION QID.RESPIRATORY [facility] Last Admin: 04/14/23 08:27 Dose: 3 ml Aspirin (Aspirin 81 Mg Ec Tablet) 81 mg PO DAILY [facility] Last Admin: 04/13/23 08:48 Dose: 81 mg Atenolol (Atenolol 50 Mg Tablet) 25 mg PO BID [facility] Last Admin: 04/13/23 17:27 Dose: 25 mg Clopidogrel Bisulfate (Clopidogrel 75 Mg Tablet) 75 mg PO DAILY [facility] Last Admin: 04/13/23 08:48 Dose: 75 mg Enoxaparin Sodium (Enoxaparin 80 Mg/0.8 Ml Syringe) 80 mg SUBCUT Q12H [facility] Last Admin: 04/14/23 03:42 Dose: Not Given Sodium Chloride (Sodium Chloride 0.9%) 1,000 mls @ 75 mls/hr IV .[id number] [facility] Last Admin: 04/14/23 03:41 Dose: 75 mls/hr Azithromycin 500 mg/ Sodium (Chloride) 250 mls @ 250 mls/hr IV Q24H [facility]; Protocol Last Titration: 04/13/23 15:05 Dose: 0 mls/hr Isosorbide Mononitrate (Isosorbide Mononitrate Er 30 Mg Tablet) 15 mg PO BID [facility] Last Admin: 04/13/23 17:22 Dose: 15 mg Losartan Potassium (Losartan 50 Mg Tablet) 100 mg PO QAM [facility] Last Admin: 04/14/23 05:51 Dose: 100 mg Losartan Potassium (Losartan 50 Mg Tablet) 50 mg PO QPM [facility] Last Admin: 04/13/23 17:23 Dose: 50 mg Methylprednisolone Sodium Succinate (Methylprednisolone Sod Succ 40 Mg/Ml Inj) 40 mg IVP Q8H [facility] Last Admin: 04/14/23 03:41 Dose: 40 mg Morphine Sulfate (Morphine 4 Mg/Ml Sdv 1 Ml) 2 mg IVP Q4H PRN PRN Reason: SEVERE PAIN Ondansetron HCl (Ondansetron 2 Mg/Ml Sdv 2 Ml) 4 mg IVP Q8H PRN PRN Reason: vomiting, or N/V if npo Pantoprazole Sodium (Pantoprazole Dr 40 Mg Tablet) 40 mg PO DAILY [facility] Last Admin: 04/13/23 08:48 Dose: 40 mg Vitals/I&O/Wt Last Vital Signs Temp 98.3 F 04/14/23 04:00 Pulse 91 04/14/23 08:32 Resp 18 04/14/23 08:27 BP 136/84 04/14/23 05:51 Pulse Ox 94 04/14/23 08:27 O2 Del Method Room Air 04/14/23 08:27 04/13/23 04/14/23 04/14/23 22:59 06:59 14:59 Intake Total 2140 / 2380 1300 / 3680 Output Total 200 / 200 Balance 1940 / 2180 1300 / 3480 Weight last 48 hrs Weight 179 lb 4.8 oz Weight 600 lb Weight 186 lb Weight 186 lb Weight 186 lb Physical Exam Narrative: GENERAL: The patient is alert and oriented times three. Not in any acute distress. HEENT: No significant pallor, icterus or lymphadenopathy.Oral cavity: There are no mucous membrane lesions. NECK: Trachea appears to be central. No masses noted. No JVD or thyromegaly appreciated. RESPIRATORY: Chest is symmetrical. No intercostals muscle retraction or any accessory muscle activation. There is no chest wall tenderness. Breath sounds are distant bilaterally. Scattered bilateral expiratory wheezing. HEART: The heart sounds are normal. No S3 or S4. No significant murmurs. No pericardial rub ABDOMEN: No vessel pulsations or distention. No tenderness. No organomegaly appreciated. Bowel sounds are normally heard. : Deferred. RECTAL: Deferred. LYMPHATIC: No lymphadenopathy noted in the neck. EXTREMITIES: No edema or cyanosis. No clubbing. MUSCULOSKELETAL: No acute joint deformities or swelling SKIN: There are no significant rashes or ecchymosis NEUROPSYCHIATRIC: The patient is alert and oriented x3. Appears to be in a good mood. No tremors or rigidity noted. Data 04/14/23 03:56 04/14/23 03:56 Other Labs: Laboratory Last Values WBC 15.78 10^3/uL (3.29-11.43) H 04/14/23 03:56 RBC 3.98 10^6/uL (3.85-5.65) 04/14/23 03:56 Hgb 12.80 g/dL (11.27-16.99) 04/14/23 03:56 Hct 36.2 % (37-53) L 04/14/23 03:56 MCV 91.0 fl (82-101) 04/14/23 03:56 MCH 32.2 pg (27-33) 04/14/23 03:56 MCHC 35.4 g/dL (30-55) 04/14/23 03:56 RDW 12.9 % (12.1-15.1) 04/14/23 03:56 Plt Count 206 10^3/cmm (157-399) 04/14/23 03:56 MPV 9.1 fL (7.4-10.4) 04/14/23 03:56 Neut % (Auto) 91.5 % 04/14/23 03:56 Lymph % (Auto) 5.8 % 04/14/23 03:56 [place] % (Auto) 2.2 % 04/14/23 03:56 Eos % (Auto) 0.0 % 04/14/23 03:56 Baso % (Auto) 0.1 % 04/14/23 03:56 Neut # (Auto) 14.44 10^3/uL (1.8-7.7) H 04/14/23 03:56 Lymph # (Auto) 0.9 10^3/uL (0.8-4.8) 04/14/23 03:56 [place] # (Auto) 0.4 10^3/uL (0.2-0.9) 04/14/23 03:56 Eos # (Auto) 0.0 10^3/uL (0.0-0.8) 04/14/23 03:56 Baso # (Auto) 0.0 10^3/uL (0.0-0.1) 04/14/23 03:56 Nucleated RBC % (auto) 0 % 04/14/23 03:56 Nucleated RBCs # 0.0 /100WBC 04/14/23 03:56 Sodium 135 mmol/L (136-145) L 04/14/23 03:56 Potassium 4.4 mmol/L (3.5-5.1) 04/14/23 03:56 Chloride 103 mmol/L (98-107) 04/14/23 03:56 Carbon Dioxide 25 mmol/L (22-29) 04/14/23 03:56 Anion Gap 11.4 (5-19) 04/14/23 03:56 BUN 18 mg/dL (8-23) 04/14/23 03:56 Creatinine 0.8 mg/dL (0.7-1.2) 04/14/23 03:56 GFR Calculation Not Reportable 04/14/23 03:56 Glucose 144 mg/dL (65-115) H 04/14/23 03:56 Estimat Average Glucose 114 04/12/23 10:46 Hemoglobin A1c 5.6 % (4.0-6.0) 04/12/23 10:46 Calculated Osmolality 284 mOsm/kg (285-295) L 04/14/23 03:56 Calcium 8.7 mg/dL (8.5-10.5) 04/14/23 03:56 Magnesium 1.8 mg/dL (1.7-2.3) 04/14/23 03:56 Total Bilirubin 0.5 mg/dL (0.15-1.2) 04/13/23 04:35 AST 23 U/L (0-40) 04/13/23 04:35 ALT 10 U/L (0-41) 04/13/23 04:35 Alkaline Phosphatase 73 U/L (40-130) 04/13/23 04:35 Troponin T Baseline 14 ng/L (0-15) 04/12/23 10:46 Troponin T 120 Minute 11.70 ng/L (0-15) 04/12/23 12:13 Delta Troponin T -2.30 ABS# (0-10) L 04/12/23 12:13 Troponin T Hi Sens 6Hr 9.50 ng/L (0-15) 04/12/23 17:24 Troponin T Hi Sens 6Hr Delta -4.50 ng/L (0-12) L 04/12/23 17:24 NT-Pro-B Natriuret Pep 193 pg/mL (0-125) H 04/12/23 10:46 Total Protein 6.9 g/dL (6.6-8.7) 04/13/23 04:35 Albumin 3.9 g/dL (3.5-5.2) 04/13/23 04:35 Globulin 3.0 g/dL (1.3-4.6) 04/13/23 04:35 Lipase 14 U/L (13-60) 04/12/23 10:46 TSH 1.31 uIU/mL (0.27-4.20) 04/12/23 10:46 Urine Color Yellow (Yellow) 04/13/23 05:15 Urine Appearance Hazy (CLEAR) A 04/13/23 05:15 Urine pH 5 (5-7) 04/13/23 05:15 Ur Specific [place] 1.020 (1.005-1.030) 04/13/23 05:15 Urine Protein Neg (Negative) 04/13/23 05:15 Urine Glucose (UA) Norm (Normal) 04/13/23 05:15 Urine Ketones Negative (Negative) 04/13/23 05:15 Urine Blood 2+ (Negative) H 04/13/23 05:15 Urine Nitrate Negative (Negative) 04/13/23 05:15 Urine Bilirubin Neg (Negative) 04/13/23 05:15 Urine Urobilinogen Neg mg/dL (Negative) 04/13/23 05:15 Ur Leukocyte Esterase Negative (Negative) 04/13/23 05:15 Urine RBC 0-4 /hpf (0-2) H 04/13/23 05:15 Urine WBC 5-10 /hpf (0-5) H 04/13/23 05:15 Ur Squamous Epith Cells None /hpf (0-5) 04/13/23 05:15 Ur Transition Epith Cell 0-4 /hpf 04/13/23 05:15 Amorphous Sediment Not Reportable 04/13/23 05:15 Urine Bacteria 3+ /hpf (NONE) H 04/13/23 05:15 A&P Assessment and plan (1) Atherosclerotic heart disease of [place] coronary artery with unstable angina pectoris: The patient's symptoms are suggestive of accelerated angina. The EKG changes may assess standard lateral wall ischemia. Echo is unremarkable. No evidence of myocardial injury so far. For further evaluation of the coronary status, patient may benefit from a cardiac catheterization. Qualifiers: [place] vs. transplanted heart: sioux heart Qualified Code(s): I25.110 - Atherosclerotic heart disease of [place] coronary artery with unstable angina pectoris (2) Hyperlipidemia: Continue on the current medications. Qualifiers: Hyperlipidemia type: other hyperlipidemia Qualified Code(s): E78.49 - Other hyperlipidemia (3) HTN (hypertension): Will optimize the antihypertensive medication Qualifiers: Hypertension type: essential hypertension Qualified Code(s): I10 - Essential (primary) hypertension (4) COPD exacerbation: Seems to be improving. Will continue on the current management. (5) Elevated white blood cell count: Most likely related to the steroids. The patient has been on high-dose of steroids. Qualifiers: Leukocytosis type: bandemia Qualified Code(s): D72.825 - Bandemia Plan Discussed with Dr. Kim . It was thought to be appropriate to go ahead with the proposed procedure. The risk and benefits of the procedure were discussed with the patient. The risk of bleeding, hematoma, vascular injury, myocardial infarction, myocardial perforation, malignant cardiac arrhythmias ,CVA, renal failure and other concomitant complications were explained in detail. Possibility of worsening of the respiratory status during the procedure where explained to the patient and family in detail. They understood this well and consented to proceed Based on the angiogram findings, further recommendations will be made Attestations Medical Necessity Statement*: Patient requires continued hospital stay for close monitoring and further management Coding Level of Care Code Acute Code for [facility] Fwd Diagnoses Atherosclerosis of sioux coronary artery of sioux heart with unstable angina pectoris I25.110 [place] vs. transplanted heart: [place] heart Other hyperlipidemia E78.49 Hyperlipidemia type: other hyperlipidemia Essential hypertension I10 Hypertension type: essential hypertension COPD exacerbation J44.1 Bandemia D72.825 Leukocytosis type: bandemia
[2023-04-14] MEDS: pantoprazole DR 40 mg Tablet PO (10:19)
[2023-04-14] MEDS: isosorbide mononitrate ER 30 mg Tablet 15 MG PO (10:19)
[2023-04-14] MEDS: aspirin 81 mg EC Tablet PO (10:21)
[2023-04-14] MEDS: clopidogrel 75 mg Tablet PO (10:22)
[2023-04-14] MEDS: atenolol 50 mg Tablet 25 MG PO (10:22)
[2023-04-14] MEDS: azithromycin 500 MG in sodium chloride 0.9% 250 ML 250 MG IV (11:56)
--- NOTE | 2023-04-14 12:26 | P.PN_ITS ---
Subjective 2 Subjective: No chest pain overnight. Supposed to go for catheter today. WBC count 15,000 today. I suspect this is probably due to steroid addition yesterday. Vitals/I&O/Wt Last Vital Signs Temp 98.0 F 04/14/23 08:00 Pulse 66 04/14/23 12:00 Resp 21 H 04/14/23 12:00 BP 122/75 04/14/23 12:00 Pulse Ox 92 04/14/23 12:00 O2 Del Method Room Air 04/14/23 12:00 04/13/23 04/14/23 04/14/23 22:59 06:59 14:59 Intake Total 2140 / 2380 1300 / 3680 Output Total 200 / 200 Balance 1940 / 2180 1300 / 3480 Weight last 48 hrs Weight 81.329 kg Weight 272.155 kg Weight 84.368 kg Weight 84.368 kg Physical Exam 2 Narrative: General: Alert oriented x3, patient seen sitting up in bed, chest pain-free. HEENT: Normocephalic, atraumatic, EOMI, breathing comfortably on room air. Cardio: Regular rate rhythm, normal S1-S2, Respiratory: Clear to auscultation bilaterally no wheezes no rhonchi. GI: Abdomen soft, nontender, nondistended, bowel sounds + Behavior: Appropriate and cooperative Extremities: No edema noted. Data 04/14/23 03:56 04/14/23 03:56 Micro: Microbiology 04/13/23 05:15 Urine Culture - Preliminary Urine,Clean Catch A&P Assessment and plan (1) HTN (hypertension): Qualifiers: Hypertension type: essential hypertension Qualified Code(s): I10 - Essential (primary) hypertension (2) Chest pain: Qualifiers: Chest pain type: unspecified Qualified Code(s): R07.9 - Chest pain, unspecified (3) Atherosclerosis of coronary artery of [place] heart without angina pectoris: (4) Hyperlipidemia: Qualifiers: Hyperlipidemia type: other hyperlipidemia Qualified Code(s): E78.49 - Other hyperlipidemia (5) COPD (chronic obstructive pulmonary disease): (6) Shortness of breath: (7) Nicotine addiction: Plan #Unstable angina #Coronary artery disease 50% RCA lesion #Hypertension #COPD exacerbation #Hypokalemia?resolved #Hypomagnesemia?resolved ? Continue on ACS protocol to treat for unstable angina. Aspirin, loaded with Plavix, Plavix daily, continue atenolol. Continue therapeutic Lovenox every 12 hours ? Continue Imdur, Nitropaste ? Consult cardiology. Patient going for angiogram today. ? Check hemoglobin A1c, 5.6 lipid panel, TSH 1.31 ? Check BNP 193 ? Delta troponin -4.50 e ? Serial EKGs -Echo pending at this time. - Continue to monitor on telemetry. -Switch to DuoNeb every 6 hours scheduled ? Incentive spirometer, flutter valve Solu-Medrol 40 every 8 hours Azithromycin 500 daily for anti-inflammatory purposes to treat for COPD exacerbation Started on ceftriaxone for UTI. Urine culture pending. UA abnormal. ? Replete potassium and magnesium today. DNR/DNI he states if he goes let him go. I do not want any interventions. Attestations 2 Medical Necessity Statement*: Patient going to angiogram today. Diagnoses Essential hypertension I10 Hypertension type: essential hypertension Chest pain, unspecified type R07.9 Chest pain type: unspecified Atherosclerosis of coronary artery of [place] heart without angina pectoris I25.10 Other hyperlipidemia E78.49 Hyperlipidemia type: other hyperlipidemia COPD (chronic obstructive pulmonary disease) J44.9 Shortness of breath R06.02 Nicotine addiction F17.200
--- NOTE | 2023-04-14 14:09 | PM.DCS ---
Discharge Providers Date of Admission: 04/12/23 14:36 Date of Discharge: April 14, 2023 Attending Provider at Admission: Ines Kim MD Attending Provider at Discharge: Ines Kim MD Primary Care Provider: Denise Orantes MD Diagnoses at Discharge Discharge Diagnosis (1) HTN (hypertension): Status: Acute Qualifiers: Hypertension type: essential hypertension Qualified Code(s): I10 - Essential (primary) hypertension (2) Chest pain: Status: Resolved Qualifiers: Chest pain type: unspecified Qualified Code(s): R07.9 - Chest pain, unspecified (3) Atherosclerosis of coronary artery of [place] heart without angina pectoris: Status: Acute (4) Hyperlipidemia: Status: Acute Qualifiers: Hyperlipidemia type: other hyperlipidemia Qualified Code(s): E78.49 - Other hyperlipidemia (5) COPD (chronic obstructive pulmonary disease): Status: Acute (6) Shortness of breath: Status: Resolved (7) Nicotine addiction: Status: Acute Reason for Visit Reason for Visit: upper epigastic pain Brief History: Jeremy Randle is a 73 year old male With past medical history of hypertension, COPD, hyperlipidemia, shortness of breath presented to the hospital today with complaint of chest pain. He states that the pain has been worsening and worsening over the last couple of days. He has been using nitro. He says when he gets the chest pain he breaks into a sweat. And last night when he had the pain he became very dizzy and lightheaded along with it. He typically takes nitro for it. He says he took 3 nitros and it finally subsided. He has been watching it but did not come to the hospital however it was now unbearable and therefore he presented. He follows with Dr. Carter for cardiology and Dr. Enciso for his COPD. He says he has an appointment coming up with Dr. Carter and he was planning to tell him that the chest pain is getting worse and worse and something needs to be done about it. Patient has had an angiogram done back in 2021 and he was found to have a 50% RCA lesion KENDELL flow 3, at that time no interventional targets. He says at first the chest pain was happening upon exertion however now it starting to happen with minimal exertion as well. Simply him getting up out of bed causes the pain and him breaking into a sweat. Pain is mostly middle of the chest and sometimes epigastric.. Also has nausea and sometimes. Denies any other symptoms. Hospital Course Hospital Course Patient presented with chest pain along with a COPD exacerbation. White count elevated secondary to steroids. He went for cardiac cath which showed moderate coronary artery disease with 50% RCA lesion. No significant changes. He will be sent home in stable condition. Discussed with cardiology and we will place him on baby aspirin at this time. Patient to follow-up with cardiology as an outpatient. Secondary to wheezing and rhonchi and acute hypoxia patient qualified for 2 L nasal cannula secondary to his underlying COPD. He stated that he had oxygen at home prior but he felt he did not need it therefore returned to the [place]. He however believes he does need it now and he will start wearing it. Oxygen was set up. He also an appointment upcoming with his insurance verify rep Dr. Enciso which he will be keeping at this time. Advair added to patient's inhaler regimen. Continue Stiolto, Ventolin, Advair at this time. Prednisone short course and azithromycin given at discharge. He was given budesonide and DuoNeb inhalation prior to leaving the hospital. Physical Exam Narrative: General: Alert oriented x3, patient seen sitting up in bed, chest pain-free. HEENT: Normocephalic, atraumatic, EOMI, breathing comfortably on room air. Cardio: Regular rate rhythm, normal S1-S2, Respiratory: Clear to auscultation bilaterally no wheezes no rhonchi. GI: Abdomen soft, nontender, nondistended, bowel sounds + Behavior: Appropriate and cooperative Extremities: No edema noted. Discharge Data Studies Completed and Pending Completed Studies During Hospitalization Category Date Time Status XR chest 1V portable 10004 Stat Exams 04/12/23 11:04 Completed CV. 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 Routine Exams 04/14/23 06:52 Taken Basic Metabolic Panel AM LABS Lab 04/15/23 04:00 Ordered Complete Blood Count w/Auto AM LABS Lab 04/15/23 04:00 Ordered Sputum Culture and Gram Stain Stat Lab 04/13/23 12:20 Received Urine Culture Stat Lab 04/13/23 05:15 Results Laboratory Results WBC 15.78 10^3/uL (3.29-11.43) H 04/14/23 03:56 RBC 3.98 10^6/uL (3.85-5.65) 04/14/23 03:56 Hgb 12.80 g/dL (11.27-16.99) 04/14/23 03:56 Hct 36.2 % (37-53) L 04/14/23 03:56 MCV 91.0 fl (82-101) 04/14/23 03:56 MCH 32.2 pg (27-33) 04/14/23 03:56 MCHC 35.4 g/dL (30-55) 04/14/23 03:56 RDW 12.9 % (12.1-15.1) 04/14/23 03:56 Plt Count 206 10^3/cmm (157-399) 04/14/23 03:56 MPV 9.1 fL (7.4-10.4) 04/14/23 03:56 Neut % (Auto) 91.5 % 04/14/23 03:56 Lymph % (Auto) 5.8 % 04/14/23 03:56 [place] % (Auto) 2.2 % 04/14/23 03:56 Eos % (Auto) 0.0 % 04/14/23 03:56 Baso % (Auto) 0.1 % 04/14/23 03:56 Neut # (Auto) 14.44 10^3/uL (1.8-7.7) H 04/14/23 03:56 Lymph # (Auto) 0.9 10^3/uL (0.8-4.8) 04/14/23 03:56 [place] # (Auto) 0.4 10^3/uL (0.2-0.9) 04/14/23 03:56 Eos # (Auto) 0.0 10^3/uL (0.0-0.8) 04/14/23 03:56 Baso # (Auto) 0.0 10^3/uL (0.0-0.1) 04/14/23 03:56 Nucleated RBC % (auto) 0 % 04/14/23 03:56 Nucleated RBCs # 0.0 /100WBC 04/14/23 03:56 Sodium 135 mmol/L (136-145) L 04/14/23 03:56 Potassium 4.4 mmol/L (3.5-5.1) 04/14/23 03:56 Chloride 103 mmol/L (98-107) 04/14/23 03:56 Carbon Dioxide 25 mmol/L (22-29) 04/14/23 03:56 Anion Gap 11.4 (5-19) 04/14/23 03:56 BUN 18 mg/dL (8-23) 04/14/23 03:56 Creatinine 0.8 mg/dL (0.7-1.2) 04/14/23 03:56 GFR Calculation Not Reportable 04/14/23 03:56 Glucose 144 mg/dL (65-115) H 04/14/23 03:56 Estimat Average Glucose 114 04/12/23 10:46 Hemoglobin A1c 5.6 % (4.0-6.0) 04/12/23 10:46 Calculated Osmolality 284 mOsm/kg (285-295) L 04/14/23 03:56 Calcium 8.7 mg/dL (8.5-10.5) 04/14/23 03:56 Magnesium 1.8 mg/dL (1.7-2.3) 04/14/23 03:56 Total Bilirubin 0.5 mg/dL (0.15-1.2) 04/13/23 04:35 AST 23 U/L (0-40) 04/13/23 04:35 ALT 10 U/L (0-41) 04/13/23 04:35 Alkaline Phosphatase 73 U/L (40-130) 04/13/23 04:35 Troponin T Baseline 14 ng/L (0-15) 04/12/23 10:46 Troponin T 120 Minute 11.70 ng/L (0-15) 04/12/23 12:13 Delta Troponin T -2.30 ABS# (0-10) L 04/12/23 12:13 Troponin T Hi Sens 6Hr 9.50 ng/L (0-15) 04/12/23 17:24 Troponin T Hi Sens 6Hr Delta -4.50 ng/L (0-12) L 04/12/23 17:24 NT-Pro-B Natriuret Pep 193 pg/mL (0-125) H 04/12/23 10:46 Total Protein 6.9 g/dL (6.6-8.7) 04/13/23 04:35 Albumin 3.9 g/dL (3.5-5.2) 04/13/23 04:35 Globulin 3.0 g/dL (1.3-4.6) 04/13/23 04:35 Lipase 14 U/L (13-60) 04/12/23 10:46 TSH 1.31 uIU/mL (0.27-4.20) 04/12/23 10:46 Urine Color Yellow (Yellow) 04/13/23 05:15 Urine Appearance Hazy (CLEAR) A 04/13/23 05:15 Urine pH 5 (5-7) 04/13/23 05:15 Ur Specific [place] 1.020 (1.005-1.030) 04/13/23 05:15 Urine Protein Neg (Negative) 04/13/23 05:15 Urine Glucose (UA) Norm (Normal) 04/13/23 05:15 Urine Ketones Negative (Negative) 04/13/23 05:15 Urine Blood 2+ (Negative) H 04/13/23 05:15 Urine Nitrate Negative (Negative) 04/13/23 05:15 Urine Bilirubin Neg (Negative) 04/13/23 05:15 Urine Urobilinogen Neg mg/dL (Negative) 04/13/23 05:15 Ur Leukocyte Esterase Negative (Negative) 04/13/23 05:15 Urine RBC 0-4 /hpf (0-2) H 04/13/23 05:15 Urine WBC 5-10 /hpf (0-5) H 04/13/23 05:15 Ur Squamous Epith Cells None /hpf (0-5) 04/13/23 05:15 Ur Transition Epith Cell 0-4 /hpf 04/13/23 05:15 Amorphous Sediment Not Reportable 04/13/23 05:15 Urine Bacteria 3+ /hpf (NONE) H 04/13/23 05:15 Vitals Last Vital Signs Temp 98.0 F 04/14/23 08:00 Pulse 66 04/14/23 12:00 Resp 21 H 04/14/23 12:00 BP 122/75 04/14/23 12:00 Pulse Ox 92 04/14/23 12:00 O2 Del Method Room Air 04/14/23 12:00 Discharge Plan Discharge Patient Disposition: Home Condition: Stable Prescriptions: New prednisone 20 mg tablet 40 mg PO DAILY 4 Days Qty: 8 0RF azithromycin 500 mg tablet See Rx Instructions .ROUTE .COMPLEX Qty: 3 0RF Rx Instructions: For 250 mg dose pack: take 500 mg today (day 1), then 250 mg for 4 days (days 2-5) Advair Diskus 250-50 mcg/dose blister with device 1 inh inhalation BID Qty: 60 0RF aspirin 81 mg capsule 81 mg PO DAILY Qty: 30 0RF Continued Stiolto Respimat 2.5-2.5 mcg/actuation mist 2 puff INHALATION Q24H 30 Days Qty: 4 4RF isosorbide mononitrate 30 mg tablet extended release 24 hr 15 mg PO BID omeprazole 20 mg capsule,delayed release(DR/EC) 20 mg PO QDAY ibuprofen 800 mg tablet 800 mg PO TID chlorpheniramine maleate 4 mg tablet 4 mg PO Q4H PRN (Reason: Allergy Symptoms) guaifenesin 200 mg tablet 400 mg PO Q4H PRN (Reason: Cough) tramadol 50 mg tablet 50 mg PO TID PRN (Reason: Pain) fluticasone propionate [Children's Flonase Allergy Rlf] 50 mcg/actuation spray,suspension 2 spray INTRANASAL QPM hydrochlorothiazide 25 mg tablet 25 mg PO QAM Qty: 90 3RF albuterol sulfate [ProAir HFA] 90 mcg/actuation HFA aerosol inhaler 2 puff INHALATION Q6H PRN (Reason: shortness of breath or wheezing) Qty: 18 3RF amlodipine 5 mg Tablet 2.5 mg PO DAILY atenolol 50 mg Tablet 25 mg PO BID losartan 100 mg tablet See Rx Instructions .ROUTE .COMPLEX Rx Instructions: 100mg AM AND 50mg PM Nitrostat 0.4 mg tablet, sublingual 0.4 mg SUBLINGUAL DIRECTED PRN (Reason: Chest Pain) Qty: 9 0RF Discharge Orders: Discharge Order (Routine); Ordered 04/14/23 Ordered By: Ines Kim Other Ambulatory Orders: DME: Oxygen (Order) Location: None Selected Ordered By: Ines Kim Referrals: Denise Orantes MD [Primary Care Provider] - 04/21/23 11:30 am Datar,Josh Stewart MD [Physician] - 04/27/23 8:30 am (Please keep this previously scheduled appointment. Thank you.) Steffi Carter MD [Physician] - 04/25/23 10:15 am (Please keep this previously scheduled appointment. Thank you.) Discharge Diet: Cardiac Discharge Activity: Resume usual activity Patient Instructions: Prednisone (By mouth) (predniSONE Intensol, Prednicot, Deltasone, Elvi), Azithromycin (By mouth) (Zithromax, Zithromax Tri-Pradip, Zithromax..., Fluticasone/Salmeterol (By breathing) (Advair Diskus 100/50, Advair..., Urinary Tract Infection in Men (DC), COPD (Chronic Obstructive Pulmonary Disease) (DC), Coronary Angioplasty (DC), COPD Stoplight, Opioid Safety, Post Angiogram Home Care Instructions Discharge Attestations Time Spent in Discharge Care*: greater than 30 min Quality Metrics Clinical Quality Measures [ No reported AMI, CVA or VTE this stay] Coding Level of Care Code Acute Code for Chg Fwd Diagnoses Essential hypertension I10 Hypertension type: essential hypertension Chest pain, unspecified type R07.9 Chest pain type: unspecified Atherosclerosis of coronary artery of [place] heart without angina pectoris I25.10 Other hyperlipidemia E78.49 Hyperlipidemia type: other hyperlipidemia COPD (chronic obstructive pulmonary disease) J44.9 Shortness of breath R06.02 Nicotine addiction F17.200
[2023-04-14] MEDS: budesonide 0.5 mg/2 mL Neb INHALATION (15:02)
[2023-04-14] MEDS: enoxaparin 80 mg/0.8 mL Syringe SUBCUT (15:15)
--- NOTE | 2023-04-14 16:23 | PC.NURSE ---
received from cardiac collaborating supervising physician at 1005.alert and oriented x 4.denies pain at present.right wrist with tr band on and inflated.no hematoma noted.instructed pt to notify staff for any bleeding,pain,numbness or for any concerns at all.pt verb understanding of instructions
--- NOTE | 2023-04-14 16:45 | PC.NURSE ---
tr band slowly deflated and eventually removed at 1500.no hematoma noted.pt instructed in activity restrictions s/p tr band removal...and instructed to notify staff for any bleeding,pain,numbness,or for any concerns at all.pt verb understanding of instructions.
--- NOTE | 2023-04-14 17:17 | PC.NURSE ---
discharge instructions given and explained.pt and cg verb understanding of instructions.discharged to exit via w/c at 1700.spouse to drive pt home
== END 2023-04-14 17:00 | disposition home or self-care (01) | DRG 287 ==
LOC: ER 11:31 → CSU 15:46
PROVIDERS: Internal Medicine Cardiovascular Disease; Admitting Provider Internal Medicine; Emergency Provider Family Medicine; PCP Family Medicine; Visit Provider Internal Medicine
PROC: 4A023N7 Measurement of Cardiac Sampling and Pressure, Left Heart, Percutaneous Approach (ICD-10-PCS; principal; 2023-04-14 08:30)
DX: I25.110 Atherosclerotic heart disease of native coronary artery with unstable angina pectoris (principal); J44.1 Chronic obstructive pulmonary disease with (acute) exacerbation; N39.0 Urinary tract infection, site not specified; I10 Essential (primary) hypertension; E78.5 Hyperlipidemia, unspecified; F17.210 Nicotine dependence, cigarettes, uncomplicated; Z66 Do not resuscitate; R09.02 Hypoxemia; E87.6 Hypokalemia; E83.42 Hypomagnesemia; T38.0X5A Adverse effect of glucocorticoids and synthetic analogues, initial encounter; D72.825 Bandemia
CPT/HCPCS: 36415; 71045; 80048; 80053; 81001; 81015; 83036; 83690; 83735; 83880; 84443; 84484; 85025; 87070; 87086; 87205; 93005; 93306; 93458; 94640; 94664; 94760; 96361; 96365; 96372; 96374; 96376; 99152; 99153; 99285; C1769; C1887; C1894; J0456; J1644; J1650; J2250; J2405; J2920; J3010; J3475; J3490; J7030; J7050; J7626; Q0163; Q9967

== ENCOUNTER → 2023-04-25 09:47 | Outpatient (BNVA) | payer OTHER, SELFPAY | PROVIDERS: PCP Family Medicine; Visit Provider Internal Medicine Cardiovascular Disease | DX: I25.10 Atherosclerotic heart disease of native coronary artery without angina pectoris (principal); E78.49 Other hyperlipidemia; F17.210 Nicotine dependence, cigarettes, uncomplicated; I10 Essential (primary) hypertension | CPT/HCPCS: 99214 ==

== ENCOUNTER → 2023-04-27 09:36 | Outpatient (BNVA) | payer OTHER, SELFPAY | PROVIDERS: PCP Family Medicine; Visit Provider Internal Medicine Pulmonary Disease | DX: Z09 Encounter for follow-up examination after completed treatment for conditions other than malignant neoplasm (principal); J44.9 Chronic obstructive pulmonary disease, unspecified; R91.1 Solitary pulmonary nodule; F17.210 Nicotine dependence, cigarettes, uncomplicated; I25.10 Atherosclerotic heart disease of native coronary artery without angina pectoris; Z99.81 Dependence on supplemental oxygen | CPT/HCPCS: 99214 ==

== ENCOUNTER 2023-05-16 08:32 | Outpatient (CLI) | payer OTHER, SELFPAY ==
--- NOTE | 2023-05-16 09:00 | CT_ITS ---
WS: [id number] LDCT LUNG CANCER SCREENING HISTORY: Cancer Screen TECHNIQUE: Axial imaging performed from the apices to 1 cm below the costophrenic angles. Coronal and sagittal reformats are submitted with axial MIP series. All CT scans at [facility] use at least one of these dose optimization techniques: automated exposure control; mA and/or kV adjustment per patient size (includes targeted exams where dose is matched to clinical indication); or iterativ e reconstruction. DLP: 69.71 mGy.cm DIvol: Mean CTDIvol: 1.30 (mGy) COMPARISON: 09/21/2021, PET/CT 09/30/2019, chest CT 09/30/2019 Diagnostic quality: Satisfactory Lungs: Advanced centrilobular emphysema. Long-term stability is a noncalcified nodule measuring 10 mm in the LEFT upper lobe which has been described on multiple prior studies and thought to be benign b y PET/CT imaging. No increase in size of this nodule. No new pulmonary mass or nodule. No endobronchi al lesions. Small amount of retained secretions in the trachea. Heart: Normal size heart with no pericardial effusion.. Reidentified is a cystic mass posterior to th e LEFT atrium extending over a length of 7.8 cm x 5.0 x 7.1 cm thought to be a pericardiac cyst. No i ncrease in size. Other findings: Mild atherosclerosis aorta. No adrenal mass. Mild thoracic spondylosis. No destructiv e bone lesions. IMPRESSION: CT/CT lung screening [id number] LUNG-RADS: 2-Benign Appearance or Behavior FOLLOW UP: 12 Month: Continue annual screening with LDCT OTHER FINDINGS (S MODIFIER): None.
== END 2023-05-16 08:33 | disposition home or self-care (01) ==
LOC: RAD 08:33
PROVIDERS: PCP Family Medicine; Visit Provider Internal Medicine Pulmonary Disease
DX: Z12.2 Encounter for screening for malignant neoplasm of respiratory organs (principal); F17.210 Nicotine dependence, cigarettes, uncomplicated; J43.2 Centrilobular emphysema; R91.1 Solitary pulmonary nodule
CPT/HCPCS: 71271

== ENCOUNTER → 2023-10-25 11:16 | Outpatient (BNVA) | payer OTHER, SELFPAY | PROVIDERS: PCP Family Medicine; Visit Provider Internal Medicine Cardiovascular Disease | DX: I25.10 Atherosclerotic heart disease of native coronary artery without angina pectoris (principal); E78.49 Other hyperlipidemia; I10 Essential (primary) hypertension; F17.210 Nicotine dependence, cigarettes, uncomplicated | CPT/HCPCS: 99204 ==

== ENCOUNTER → 2023-12-26 07:42 | Outpatient (BNVA) | payer OTHER, SELFPAY | PROVIDERS: PCP Family Medicine; Visit Provider Internal Medicine Critical Care Medicine | DX: Z12.2 Encounter for screening for malignant neoplasm of respiratory organs; Z99.81 Dependence on supplemental oxygen; R91.1 Solitary pulmonary nodule; J43.2 Centrilobular emphysema; F17.210 Nicotine dependence, cigarettes, uncomplicated; J96.11 Chronic respiratory failure with hypoxia; Z71.6 Tobacco abuse counseling; Z71.89 Other specified counseling | CPT/HCPCS: 99214 ==

== ENCOUNTER → 2024-04-22 09:24 | Outpatient (BNVA) | payer OTHER, SELFPAY | PROVIDERS: PCP Family Medicine; Visit Provider Nurse Practitioner Family | DX: I25.10 Atherosclerotic heart disease of native coronary artery without angina pectoris (principal); E78.49 Other hyperlipidemia; I10 Essential (primary) hypertension; F17.210 Nicotine dependence, cigarettes, uncomplicated; R06.09 Other forms of dyspnea | CPT/HCPCS: 99213 ==

== ENCOUNTER 2024-05-15 09:02 | Outpatient (CLI) | payer OTHER, SELFPAY ==
--- NOTE | 2024-05-15 09:15 | USCV_ITS ---
Jeremy Randle Age: 74 Gender: M : 1950 Exam Date: 05/15/2024 09:16 Ordering Phys: Arelis Preston NP Technologist: CT Exam Location: [facility] [place] Indication: sob,copd BP: 104 / 67 HR: 57 Rhythm: Sinus Technical Quality: Adequate MEASUREMENTS (Male / Female) Normal Values 2D ECHO LVOT Diameter 2.1 cm LV Ejection Fraction MOD 4C 72.7 % LV Ejection Fraction MOD 2C 61.1 % LV Ejection Fraction 2C AL 63.0 % LA Diameter 2.7 cm RA Systolic Volume 4C AL 62.8 ml RA Systolic Volume 4C MOD 62.8 ml LA Sys Volume AL 29.9 cm cubed LA Sys Volume Index AL 15.0 cm cubed/m squared Aorta at Sinotubular Diameter 1.9 cm IVC Diameter 2.0 cm M-MODE LA Ao Ratio MM 1.2 AV Cusp Separation MM 1.8 cm DOPPLER AV Peak Velocity 98.0 cm/s LVOT Peak Velocity 68.0 cm/s AV Area Cont Eq vti 2.5 cm squared AV Area Cont Eq pk 2.4 cm squared MV Peak Velocity 72.0 cm/s MV Area PHT 2.1 cm squared Mitral E to A Ratio 0.7 TV Peak Velocity 207.5 cm/s TR Peak Velocity 250.0 cm/s TR Peak Gradient 25.0 mmHg TV Peak E Velocity 68.0 cm/s PV Peak Velocity 98.0 cm/s FINDINGS Left Ventricle Left ventricle is normal in size. LV systolic function is normal with EF of 55-60%. No regional wall abnormalities. Right Ventricle Normal in size and function Right Atrium Normal in size Left Atrium Normal in size Mitral Valve Structurally normal mitral valve. Mild mitral regurgitation Aortic Valve Structurally normal aortic valve. No significant stenosis. Tricuspid Valve Insufficient TR jet to evaluate status. Pulmonic Valve Not well visualized Pericardium Normal Aorta Normal in size IVC Appears to be normal CONCLUSIONS L distal functions normal with EF of 55-60%. Mild mitral regurgitation. Compared to prior echocardiogram from 2023, no significant changes are seen Yobani Michel MD (Electronically Signed) Final Date: 15 May 2024 10:46 S
== END 2024-05-15 09:03 | disposition home or self-care (01) ==
PROVIDERS: PCP Family Medicine; Visit Provider Nurse Practitioner Family
DX: R06.09 Other forms of dyspnea (principal); Q24.8 Other specified congenital malformations of heart; I34.0 Nonrheumatic mitral (valve) insufficiency
CPT/HCPCS: 93306

== ENCOUNTER 2024-05-16 09:30 | Outpatient (CLI) | payer OTHER, SELFPAY ==
--- NOTE | 2024-05-16 09:45 | CT_ITS ---
WS: [id number] LDCT LUNG CANCER SCREENING HISTORY: lung cancer screening TECHNIQUE: Axial imaging performed from the apices to 1 cm below the costophrenic angles. Coronal and sagittal reformats are submitted with axial MIP series. All CT scans at [facility] use at least one of these dose optimization techniques: automated exposure control; mA and/or kV adjustment per patient size (includes targeted exams where dose is matched to clinical indication); or iterative reconstruction. DLP: 67.40 mGy.cm DIvol: Mean CTDIvol: 1.20 (mGy) COMPARISON: PET/CT 10/19/2019, 05/16/2023, 09/28/2019 Diagnostic quality: Satisfactory Lungs: Marked pulmonary hyperexpansion from emphysema. Long-term stability 12 x 7 mm noncalcified nodule LEFT upper lobe. Benign calcified granuloma LEFT lower lobe. Tiny peripheral micronodules in the LEFT lower lobe. No mass or pneumonia. No endobronchial lesions. Small amount of debris in the LEFT mainstem bronchus. Heart: Normal size heart with no pericardial effusion.. Low-attenuation mass posterior to the LEFT heart is likely a pericardial cyst measuring at least 6 cm in diameter. Other findings: No adenopathy. Mild atherosclerosis aorta. Small hiatal hernia. No adrenal mass. CT/CT lung screening [id number] IMPRESSION: LUNG-RADS: 2-Benign Appearance or Behavior FOLLOW UP: 12 Month: Continue annual screening with LDCT OTHER FINDINGS (S MODIFIER): None.
== END 2024-05-16 09:31 | disposition home or self-care (01) ==
PROVIDERS: PCP Family Medicine; Visit Provider Internal Medicine Critical Care Medicine
DX: Z12.2 Encounter for screening for malignant neoplasm of respiratory organs (principal); F17.210 Nicotine dependence, cigarettes, uncomplicated; J43.9 Emphysema, unspecified; R91.1 Solitary pulmonary nodule; J84.10 Pulmonary fibrosis, unspecified; R91.8 Other nonspecific abnormal finding of lung field; R93.89 Abnormal findings on diagnostic imaging of other specified body structures; I70.0 Atherosclerosis of aorta; K44.9 Diaphragmatic hernia without obstruction or gangrene
CPT/HCPCS: 71271; 99214

== ENCOUNTER → 2025-02-13 15:21 | Outpatient (BNVA) | payer OTHER, SELFPAY | PROVIDERS: PCP Family Medicine; Visit Provider Internal Medicine Cardiovascular Disease | DX: I25.10 Atherosclerotic heart disease of native coronary artery without angina pectoris (principal); I10 Essential (primary) hypertension; E78.5 Hyperlipidemia, unspecified; F17.210 Nicotine dependence, cigarettes, uncomplicated | CPT/HCPCS: 99214 ==

== ENCOUNTER → 2025-02-18 09:34 | Outpatient (BNVA) | payer OTHER, SELFPAY | PROVIDERS: PCP Family Medicine; Visit Provider Internal Medicine | DX: J44.9 Chronic obstructive pulmonary disease, unspecified (principal); R91.1 Solitary pulmonary nodule; I31.8 Other specified diseases of pericardium; Z99.81 Dependence on supplemental oxygen; F17.210 Nicotine dependence, cigarettes, uncomplicated | CPT/HCPCS: 99214; Q3014 ==

== ENCOUNTER 2025-02-19 10:48 | Outpatient (CLI) | payer OTHER, SELFPAY ==
[2025-02-19 11:03] VITALS: PULSE 70; RESP 18; O2SAT 95
== END 2025-02-19 10:49 | disposition home or self-care (01) ==
LOC: RT 10:49
PROVIDERS: PCP Family Medicine; Visit Provider Internal Medicine
DX: J44.9 Chronic obstructive pulmonary disease, unspecified (principal)
CPT/HCPCS: 94060; 94726; 94729; J7613